=== PATIENT | male | born 1955 | race Caucasian/White ===

== ENCOUNTER 2024-10-05 17:20 | Emergency (ER) | payer OTHER, SELFPAY ==
[2024-10-05 17:25] VITALS: PULSE 92; RESP 18; O2SAT 96; BMI 17.2
[2024-10-05 17:29] VITALS: BP 145/86; PULSE 92; RESP 18; TEMP 37.2; O2SAT 96
--- NOTE | 2024-10-05 17:33 | XR_ITS ---
Examination: AP chest single view Indications: AP portable semiupright chest single view Exam date and time: October 05, 2024 7055 hours Comparison December 07, 2015 Indications: Patient fell today with into the chest, chest pain Findings: Normal heart size No pneumothorax Mild accentuation basilar bronchovascular markings Clavicles ribs appear grossly intact Impression: No pneumothorax pulmonary contusion or hemothorax
--- NOTE | 2024-10-05 17:33 | XR_ITS ---
Examination: Left knee 2 views Technique one AP lateral left knee 2 views Exam date and time: October 15, 2024 1750 hrs. Indications: Prominent osteopenia Partial visualization tibial intramedullary megan No acute fracture Old appearing deformity proximal fibular shaft Impression: No acute fracture
--- NOTE | 2024-10-05 17:34 | EKG_ITS ---
[facility] Test Date: 2024-10-05 Pat Name: WENDY FRANCES Department: Room: - Gender: Male Blending Coordinator: : 1955 Requested By: Farhat Kirkpatrick Order Number: [id number] Reading MD: Farhat Kirkpatrick Measurements Intervals [place] Rate: 86 P: 68 MO: 156 QRS: 13 QRSD: 102 T: 79 QT: 360 QTc: 431 Interpretive Statements SINUS RHYTHM WITH SINUS ARRHYTHMIA Compared to ECG 02/16/2023 11:03:52 Atrial abnormality no longer present /store/S0/[id number]/[id number].pdf
--- NOTE | 2024-10-05 17:34 | XR_ITS ---
Examination: CT brain head without contrast. 2-D sagittal coronal reconstructions Date and time of exam:October 05, 2024 at 1808 hrs. Indications: Patient fell today with injury to the head, head pain CTDI: vol (mGy):48.4 DLP: (mGycm):1025 Technique: Multiple CT axial sections of the brain have been obtained, 5 mm slice thickness. Contrast has not been administered. 2-D sagittal, coronal reconstructions have been obtained Low dose protocols were performed. One or more of the following dose reduction techniques were used; automated exposure control, adjustment of the mA and/or KV according to patient size, use of iterative reconstruction technique. Findings: No significant ventricular enlargement. Large areas of encephalomalacia in the right middle cerebral artery distribution and right occipital lobe as well as smaller infarct, old in the right basal ganglia is Intra-axial or extra-axial hemorrhage density is not seen. No mass effect or midline shift Basal cisterns are not remarkable. Fourth ventricle is midline. Cranial vault intact. Impression: Negative for acute hemorrhage, mass effect or midline shift
--- NOTE | 2024-10-05 17:35 | EDNOTE_ITS ---
ED Fall Injury RME/HPI General Chief Complaint: Weakness Stated Complaint: MENTAL STATUS Time Seen by Provider: 10/05/24 17:32 Arrival date/time: 10/05/24 17:20 RME / HPI RME / HPI Narrative: 69-year-old male patient with significant history of BPH, diabetes mellitus hypertension, seizure disorder, was brought in by EMS for evaluation regarding ground-level fall. Apparently patient developed sudden onset of dizziness and fell to the ground. Patient told me that he landed on his right knee resulting to knee pain described as dull ache severity mild. Patient denies any head injury. However the family witnessed the patient was noted to be confused for a brief moment after the fall. When the EMS arrived patient was noted to be having a GCS of 15. Related Data Home Medications ?Medication ?Instructions ?Recorded ?Confirmed aspirin 81 mg tablet,delayed 81 mg 1XD 08/06/23 release atorvastatin 40 mg tablet 40 mg PO 1XD 08/06/23 cholecalciferol (vitamin D3) 125 125 mcg PO QDAY 08/0608/06/23 mcg (5,000 unit) tablet (Vitamin D3) cinacalcet 30 mg tablet 30 mg PO 1XD 08/06/23 divalproex 125 mg capsule,delayed 125 mg PO 1XD 08/06/23 release sprinkle empagliflozin 10 mg tablet 10 mg PO 1XD 08/06/2308/06 (Jardiance) folic acid 1 mg tablet 1 mg PO 1XD 08/06/23 3 lisinopril 20 mg tablet 20 mg PO 1XD 08/06/23 metformin 1,000 mg tablet 1,000 mg PO 1XD 08/06/2306/19 oxybutynin chloride 5 mg 5 mg PO QDAY 08/06/23 tablet,extended release 24 hr tamsulosin 0.4 mg capsule 0.4 mg PO 1XD 08/06/2308/06 Previous Rx's ?Medication ?Instructions ?Recorded hydrocodone 7.5 mg-acetaminophen 1 tab PO BID PRN pain #7 tabs 08/10/23 300 mg tablet Allergies Allergy/AdvReac Type Severity Reaction Status Date / Time Penicillins Allergy Verified 02/16/23 11:07 Review of Systems Review of Systems Narrative Review of Systems: Review of system reviewed and within normal limits except mentioned in HPI ED Exam Narrative Physical exam: VITAL SIGNS: Reviewed. GENERAL APPEARANCE: Alert and interactive, follows commands, no acute distress, HEAD AND FACE: Non-traumatic. ENT: PERRL, pink conjunctivitis, eyelid no trauma, Mucous membrane moist. NECK: Supple, nontender, no nuchal rigidity. CHEST: No tenderness, no crepitus, no paradoxical movement, no retractions. LUNGS: Clear, well ventilated, symmetric, no rales, no wheezing, no ronchi, no stridor, good breath sounds bilaterally. HEART: Regular rate, regular rhythm, no murmur, no gallops. ABDOMEN: Soft, positive bowel sounds, nondistended, no guarding, nontender, no rebound, no masses, RECTAL: Deferred. GENITAL: Deferred. NEUROLOGICAL: Gross motor function intact sensory function intact, Appropriate for age. MUSCULOSKELETAL: low back nontender, full range of motion. EXTREMITIES: Nontender, full range of motion. SKIN: Color pink, dry, no rash, no lacerations, no abrasions, no contusions. LYMPHATICS: Deferred. Course Quality Measures none Orders Category Date Time Status EKG (ED ONLY) *Do not use* NOW Care 10/05/24 17:[address] head/brain wo con Stat Exams 10/05/24 17:34 Completed EKG (ED Only) Stat Exams 10/05/24 17:34 Draft XR chest 1V Stat Exams 10/05/24 17:33 Completed XR knee limited LT 2V Stat Exams 10/05/24 17:33 Completed CBC Stat Lab 10/05/24 17:40 Completed Comprehensive Metabolic Panel Stat Lab 10/05/24 17:40 Completed Partial Thromboplastin Time Stat Lab 10/05/24 17:40 Completed Troponin I Stat Lab 10/05/24 17:40 Completed Urinalysis, C/S if Indicated Stat Lab 10/05/24 18:51 Completed Benzonatate [Tessalon] Med 10/05/24 19:47 Discontinued 200 mg PO X1 ONE Vital Signs Vital signs: Vital Signs Temperature 98.9 F 10/05/24 17:29 Pulse Rate 92 10/05/24 17:29 Respiratory Rate 18 10/05/24 17:29 Blood Pressure 145/86 H 10/05/24 17:29 Pulse Oximetry (%) 96 10/05/24 17:29 Oxygen Delivery Method Room Air 10/05/24 17:29 Fall [facility] Narrative [facility] Narrative:: 69-year-old male patient with significant history of BPH, diabetes mellitus hypertension, seizure disorder, was brought in by EMS for evaluation regarding ground-level fall. Apparently patient developed sudden onset of dizziness and fell to the ground. Patient told me that he landed on his right knee resulting to knee pain described as dull ache severity mild. Patient denies any head injury. However the family witnessed the patient was noted to be confused for a brief moment after the fall. When the EMS arrived patient was noted to be having a GCS of 15. CT scan of the head came back unremarkable. Chest x-ray came back unremarkable. Laboratory workup all came back normal except for slightly elevated leukocytos is. Could be reactive in nature. Results discussed with the patient. EKG showed sinus rhythm, ventricular rate of 84 bpm, no ST segment elevation depression. Patient appears nontoxic and hemodynamically stable. Patient discharged home and instructed to follow-up with primary care provider in 24 to 48 hours. Instructed to return to the emergency department immediately if worsening of symptoms Patient data External records reviewed:: None Clinical information provided by:: none Social determinants that could affect healthcare access:: none Patient has the following chronic illnesses:: History of CVA How is presenting disease/condition affected by chronic disease/condition?: exacerbated by Evaluation data The following diagnostics were reviewed and interpreted by me:: lab results, radiology exam(s) and EKG tracing(s) Lab and/or radiology exams considered but not ordered:: None Interpretation Summary: See results in [facility] Medications / Prescriptions Medications or Prescriptions considered but not ordered:: None Medication administrations:: Medication Administration History Discontinued Medications Benzonatate (Benzonatate 100 Mg Capsule) 200 mg PO X1 ONE; Protocol Stop: 10/05/24 19:48 Tessalon Consultations Consultation(s) initiated? (list below): No Diagnosis Fall Differential Diagnosis: syncope and other (Fall, intracranial bleed) Most likely diagnosis given after review of the tests above:: Fall Admission Indicated Admission indicated?: not indicated Admission Request Was there a request for admission?: No Disposition Plan Disposition Plan: Discharge Discharge Attestation Discharge Attestation: The patient and all family members were given an opportunity to ask questions and understood the discharge instructions. Discharge instructions specifically effects, indications for sooner follow up or return to the emergency department, and the expected course of current diagnosis. Patient condition: Stable Discharge Plan Plan Patient Disposition: HOME (Self Care) Disposition Comment: Stable Prescriptions/Referrals Prescriptions/Med Rec: No Action atorvastatin 40 mg tablet 40 mg PO 1XD lisinopril 20 mg tablet 20 mg PO 1XD aspirin 81 mg tablet,delayed release (DR/EC) 81 mg 1XD Patient Comments: TAKE ONE TABLET BY MOUTH EVERY DAY FOR THE HEART tamsulosin 0.4 mg capsule 0.4 mg PO 1XD Patient Comments: TAKE TWO CAPSULES BY MOUTH EVERY DAY FOR PROSTATE metformin 1,000 mg tablet 1,000 mg PO 1XD Patient Comments: TAKE ONE TABLET BY MOUTH TWICE DAILY FOR DIABETES folic acid 1 mg tablet 1 mg PO 1XD divalproex 125 mg capsule, delayed rel sprinkle 125 mg PO 1XD Patient Comments: TAKE ONE CAPSULE BY MOUTH TWICE DAILY cinacalcet 30 mg tablet 30 mg PO 1XD Patient Comments: TAKE ONE TABLET BY MOUTH EVERY DAY WITH FOOD OR AFTER MEALS Jardiance 10 mg tablet 10 mg PO 1XD oxybutynin chloride 5 mg Tablet Extended Release 24hr 5 mg PO QDAY cholecalciferol (vitamin D3) [Vitamin D3] 125 mcg (5,000 unit) Tablet 125 mcg PO QDAY hydrocodone-acetaminophen 7.5-300 mg tablet 1 tab PO BID MDD 2 PRN (Reason: pain) Qty: 7 0RF Referrals: Randall Fulton MD [Primary Care Provider] - In 1 week Problem List Clinical Impression: Fall Patient/Caregiver Discharge Instructions Discharge Activity: activity as tolerated Education Materials: Preventing Falls Moving Safely ... Additional Instructions: Thank you for the opportunity for serving you today. You are stable for discharged . You are advised to: Follow-up with your PCP in 1 to 2 days Return to ED for worsening of symptoms Print Language: [place] Stand Alone Forms: Paula Award Info., Patient Portal Info Letter PA/SANTOS Supervising Physician STEVE/SANTOS Supervising Physician: MD Juwan
[2024-10-05 17:59] LABS: Basophils # (Auto) 0.1 Thou/mm3 (0.0-0.2); Basophils % (Auto) 1 % (0-2.5); Eosinophils % (Auto) 0 % (0-10); Hematocrit 37.9 % (41.0-53.0); Hemoglobin 13.1 g/dL (13.5-16.0); Immature Granulocytes % (Auto) 1 % (0-0); Immature Granulocytes Auto 0.08 Thou/mm3 (0.00-0.00); Lymphocytes # (Auto) 1.7 Thou/mm3 (1.0-4.8); Lymphocytes % (Auto) 10 % (10-50); Mean Corpuscular HGB Conc 34.6 g/dl (31.0-37.0); Mean Corpuscular Hemoglobin 30.6 pg (25.0-35.0); Mean Corpuscular Volume 89 fL (80-100); Monocytes # (Auto) 1.9 Thou/mm3 (0.0-0.8); Monocytes % (Auto) 11 % (0-12); Neutrophils # (Auto) 13.5 Thou/mm3 (1.8-7.7); Neutrophils % (Auto) 78 % (37-80); Nucleated Red Blood Cell % 0 /100 WBC (0); Platelet Count 243 Thou/mm3 (140-440); RDW Standard Deviation 47.3 fL (35.1-43.9); Red Blood Count 4.28 Miln/mm3 (4.50-5.90); White Blood Count 17.2 Thou/mm3 (3.8-10.6)
[2024-10-05 18:18] VITALS: BP 135/73; PULSE 82; RESP 20; TEMP 37.5; O2SAT 97
[2024-10-05 18:23] LABS: Alanine Aminotransferase 45 U/L (10-49); Albumin, Serum 4.4 gm/dL (3.4-4.8); Albumin/Globulin Ratio 1.9 (1.2-2.2); Alkaline Phosphatase 158 U/L (46-116); Anion Gap 7 (7-16); Aspartate Amino Transferase 30 U/L (0-34); BUN/Creatinine Ratio 12 Ratio (12-20); Bilirubin,Total 0.8 mg/dL (0.3-1.2); Blood Urea Nitrogen 7 mg/dL (9-23); Calcium 10.3 mg/dL (8.3-10.6); Calcium (Corrected) 10.3 mg/dL (8.5-10.1); Carbon Dioxide 24.2 mMol/L (20.0-31.0); Chloride 101 mMol/L (98-107); Creatinine (Component) 0.6 mg/dL (0.6-1.3); Estimated Creatinine Clearance 86.9 mL/min (>60); Globulin 2.3 gm/dL (2.3-3.5); Glucose 144 mg/dL (74-106); Osmolality,Calculated 265 (275-295); Potassium 3.5 mMol/L (3.4-5.1); Sodium 132 mMol/L (136-145); Total Protein 6.7 gm/dL (5.7-8.2); Troponin I < 0.020 ng/mL (0.0-0.045); eGFR > 60 See Note
[2024-10-05 18:43] VITALS: BP 135/73; PULSE 82; RESP 21; TEMP 37.2; O2SAT 94
[2024-10-05 18:50] LABS: Partial Thromboplastin Time 23.8 Seconds (22.0-36.0)
[2024-10-05 19:11] LABS: Collection Type, Urine Clean Catch
[2024-10-05 19:48] LABS: Bacteria,Urine Rare; Bilirubin,Urine Negative (Negative); Blood,Urine 1+ (Negative); Clarity,Urine Clear (Clear/Hazy); Color,Urine Yellow (Lt Yel-Yel); Culture Indicated,Urine Not Indicated; Glucose, Urine Negative (Negative); Ketones,Urine 1+ (Negative); Leukocyte Esterase,Urine Positive (Negative); Nitrite,Urine Negative (Negative); PH,Urine 6.5 (5.0-7.0); Protein,Urine 1+ (Neg - Trace); RBC,Urine 2 /hpf (0-3); Specific Gravity,Urine 1.016 (1.001-1.035); Squamous Epithelial Cell,Urine 1 /hpf (0-5); Urobilinogen,Urine Negative mg/dL (0.0-1.0); WBC,Urine 4 /hpf (0-5)
[2024-10-05 20:26] VITALS: BP 132/77; PULSE 81; RESP 20; TEMP 37.2; O2SAT 95
[2024-10-05] MEDS: BENZONATATE 100 MG CAPSULE 200 MG PO (20:52)
== END 2024-10-05 21:07 | disposition home or self-care (01) ==
PROVIDERS: Nurse Practitioner Family; Emergency Provider Emergency Medicine; PCP Family Medicine
DX: M25.562 Pain in left knee (principal); R42 Dizziness and giddiness; D72.829 Elevated white blood cell count, unspecified; I11.9 Hypertensive heart disease without heart failure; I10 Essential (primary) hypertension; R56.9 Unspecified convulsions; Z86.73 Personal history of transient ischemic attack (TIA), and cerebral infarction without residual deficits; W18.30XA Fall on same level, unspecified, initial encounter
CPT/HCPCS: 36415; 70450; 71045; 73560; 80053; 81001; 84484; 85025; 85730; 93005; 99284; A9270

== ENCOUNTER 2025-01-28 16:41 | Inpatient (IN) | payer OTHER, MEDICARE, SELFPAY ==
[2025-01-28 16:43] VITALS: PULSE 88; O2SAT 97
[2025-01-28 16:47] VITALS: BP 101/68; PULSE 85; RESP 19; TEMP 36.8; O2SAT 98
--- NOTE | 2025-01-28 17:03 | EKG_ITS ---
[facility] Test Date: 2025-01-28 Pat Name: WENDY FRANCES Department: Room: - Gender: Male Mental Measurements Teacher: : 1955 Requested By: ED Temporary Provider Order Number: [id number] Reading MD: ED Temporary Provider Measurements Intervals [place] Rate: 71 P: 67 SC: 164 QRS: 17 QRSD: 105 T: 62 QT: 391 QTc: 425 Interpretive Statements SINUS RHYTHM WITH SINUS ARRHYTHMIA Compared to ECG 10/05/2024 17:51:15 No significant changes /store/S0/[id number]
[2025-01-28 17:58] LABS: Basophils # (Auto) 0.1 Thou/mm3 (0.0-0.2); Basophils % (Auto) 1 % (0-2.5); Eosinophils # (Auto) 0.4 Thou/mm3 (0.0-0.5); Eosinophils % (Auto) 3 % (0-10); Hematocrit 40.6 % (41.0-53.0); Hemoglobin 13.8 g/dL (13.5-16.0); Immature Granulocytes % (Auto) 1 % (0-0); Immature Granulocytes Auto 0.09 Thou/mm3 (0.00-0.00); Lymphocytes # (Auto) 1.6 Thou/mm3 (1.0-4.8); Lymphocytes % (Auto) 13 % (10-50); Mean Corpuscular Hemoglobin 30.5 pg (25.0-35.0); Mean Corpuscular Volume 90 fL (80-100); Monocytes # (Auto) 0.9 Thou/mm3 (0.0-0.8); Monocytes % (Auto) 7 % (0-12); Neutrophils # (Auto) 9.1 Thou/mm3 (1.8-7.7); Neutrophils % (Auto) 75 % (37-80); Nucleated Red Blood Cell % 0 /100 WBC (0); Platelet Count 244 Thou/mm3 (140-440); RDW Standard Deviation 46.4 fL (35.1-43.9); Red Blood Count 4.53 Miln/mm3 (4.50-5.90); White Blood Count 12.2 Thou/mm3 (3.8-10.6)
[2025-01-28 18:13] LABS: Alanine Aminotransferase 30 U/L (10-49); Albumin, Serum 4.1 gm/dL (3.4-4.8); Alkaline Phosphatase 122 U/L (46-116); Anion Gap 8 (7-16); Aspartate Amino Transferase 18 U/L (0-34); BUN/Creatinine Ratio 12 Ratio (12-20); Bilirubin,Total 0.3 mg/dL (0.3-1.2); Blood Urea Nitrogen 7 mg/dL (9-23); Calcium 10.3 mg/dL (8.3-10.6); Calcium (Corrected) 10.3 mg/dL (8.5-10.1); Carbon Dioxide 28.2 mMol/L (20.0-31.0); Chloride 104 mMol/L (98-107); Creatinine (Component) 0.6 mg/dL (0.6-1.3); Estimated Creatinine Clearance 101.4 mL/min (>60); Globulin 2.1 gm/dL (2.3-3.5); Glucose 139 mg/dL (74-106); Osmolality,Calculated 279 (275-295); Potassium 4.7 mMol/L (3.4-5.1); Sodium 140 mMol/L (136-145); Total Protein 6.2 gm/dL (5.7-8.2); Troponin I < 0.020 ng/mL (0.0-0.045); eGFR > 60 See Note
[2025-01-28 18:29] VITALS: BP 121/80; PULSE 80; RESP 20; O2SAT 97
--- NOTE | 2025-01-28 18:53 | PD.EDAMS ---
Altered Mental Status RME/HPI General Chief Complaint: Altered Mental Status Stated Complaint: HYPOTENSION Time Seen by Provider: 01/28/25 18:54 Source: patient Arrival date/time: 01/28/25 16:41 69-year-old male with a history of a CVA 3 years ago, hyperlipidemia, hypertension, type 2 diabetes presents to the emergency room with a chief complaint of a syncopal episode that occurred today at 4 PM. at bedside states that the patient's eyes rolled back and left arm began to shake. Mode of arrival: ambulatory Limitations: no limitations Related Data Home Medications ?Medication ?Instructions ?Recorded ?Confirmed atorvastatin 40 mg tablet 40 mg PO 1XD 08/06/23 01/28/25 cholecalciferol (vitamin D3) 125 125 mcg PO QDAY 08/06/23 01/28/25 mcg (5,000 unit) tablet (Vitamin D3) Held on 01/28/25. Instructions: Doctor's Order cinacalcet 30 mg tablet 30 mg PO 1XD 08/06/23 01/28/25 Held on 01/28/25. Instructions: Doctor's Order divalproex 125 mg capsule,delayed 125 mg PO 1XD 08/06/23 01/28/25 release sprinkle empagliflozin 10 mg tablet 10 mg PO 1XD 08/06/23 01/28/25 (Jardiance) Held on 01/28/25. Instructions: Doctor's Order folic acid 1 mg tablet 1 mg PO 1XD 08/06/23 01/28/25 Held on 01/28/25. Instructions: Doctor's Order lisinopril 20 mg tablet 20 mg PO 1XD 08/06/23 01/28/25 oxybutynin chloride 5 mg 5 mg PO QDAY 08/06/23 08/06/23 tablet,extended release 24 hr tamsulosin 0.4 mg capsule 0.4 mg PO 1XD 08/06/23 01/28/25 hydroxyzine HCl 25 mg tablet mg 01/28/25 Previous Rx's ?Medication ?Instructions ?Recorded hydrocodone 7.5 mg-acetaminophen 1 tab PO BID PRN pain #7 tabs 08/10/23 300 mg tablet Held on 01/28/25. Instructions: Doctor's Order Allergies Allergy/AdvReac Type Severity Reaction Status Date / Time Penicillins Allergy Verified 01/28/25 16:49 Review of Systems Review of Systems Systems Reviewed: All systems reviewed, normal except as documented Constitutional Constitutional: Reports system reviewed and no additional complaints, except as documented, Denies fatigue, Denies fever(s), Denies headache(s) and Denies weakness Eyes Eyes: Reports system reviewed and no additional complaints, except as documented, Denies blurry vision and Denies change in vision ENT Ears, Nose, Mouth, and Throat: Reports system reviewed and no additional complaints, except as documented, Denies otalgia, Denies headache(s), Denies nasal congestion, Denies throat swelling and Denies vertigo Cardiovascular Cardiovascular: Reports system reviewed and no additional complaints, except as documented, Denies chest pain, Denies dyspnea and Denies dyspnea on exertion Respiratory Respiratory: Reports system reviewed and no additional complaints, except as documented, Denies chest congestion, Denies cough, Denies dyspnea, Denies dyspnea on exertion and Denies wheezing Gastrointestinal Gastrointestinal: Reports system reviewed and no additional complaints, except as documented, Denies abdominal pain, Denies cramping, Denies nausea and Denies vomiting Genitourinary Genitourinary: Reports system reviewed and no additional complaints, except as documented, Denies dysuria and Denies hematuria Musculoskeletal Musculoskeletal: Reports system reviewed and no additional complaints, except as documented and Denies back pain Integumentary/Breasts Skin/Breast: Reports system reviewed and no additional complaints, except as documented and Denies wounds Neurologic Neurologic: Reports system reviewed and no additional complaints, except as documented, Denies confusion, Reports convulsions, Denies headache(s), Denies lack of coordination, Reports seizure-like activity, Denies vertigo and Denies weakness Psychiatric Psychiatric: Reports system reviewed and no additional complaints, except as documented, Denies anxiety, Denies confusion, Denies depression, Denies paranoia, Denies suicidal ideation and Denies tactile hallucinations Endocrine Endocrine: Reports system reviewed and no additional complaints, except as documented and Denies fatigue Hematologic/Lymphatic Hematologic/Lymphatic: Reports system reviewed and no additional complaints, except as documented and Denies lymphadenopathy Allergic/Immunologic Allergic/Immunologic: Reports system reviewed and no additional complaints, except as documented, Denies throat swelling, Denies urticaria and Denies wheezing Past Medical History Past Medical History NEUROLOGIC: Positive Neurological Disorders and Cerebrovascular Accident (left side 2020); Negative Seizures CARDIAC: Positive Hypercholesterolemia and Hypertension; Negative Cardiac Disorders or Congestive Heart Failure RESPIRATORY: Negative Respiratory Disorders, Chronic Obstructive Pulmonary Disease (COPD) or Asthma GENITOURINARY: Positive Benign Prostatic Hyperplasia; Negative Renal Disease ENDOCRINE: Positive Endocrine Disorders and Diabetes Mellitus Type 2; Negative Diabetes Mellitus Type 1 HEMATOLOGIC: Negative Sickle Cell Disease OTHER HISTORY: Negative Blood Transfusions, Blood Transfusion Reaction or Anesthesia Reactions Surgical History SURGICAL: Positive Hip Sx Social History SMOKING STATUS: Current some day smoker ED Exam General Limitations: Present no limitations General appearance: Present alert and in no apparent distress Head Head exam: Present atraumatic, normocephalic and normal inspection Expanded Head Exam Head exam physical: Absent laceration, abrasion, contusion, hematoma, raccoon eyes, Kahn's sign, tenderness of temporal artery, CSF rhinorrhea or CSF otorrhea Eye Eye exam: Present normal appearance, PERRL and EOMI ENT ENT exam: Present normal exam, normal oropharynx and mucous membranes moist Neck Neck exam: Present normal inspection, full ROM and trachea midline Chest Chest inspection: Present normal inspection and symmetric chest wall rise Respiratory Respiratory exam: Present normal lung sounds bilaterally Cardiovascular Cardiovascular exam: Present regular rate, normal rhythm and normal heart sounds Abdominal Exam Abdominal exam: Present soft and normal bowel sounds Extremities Exam Extremities exam: Present normal inspection and full ROM Back Exam Back exam: Present normal inspection and full ROM Neurological Exam Neurological exam: Present alert, oriented X3, CN II-XII intact, normal gait and reflexes normal Expanded Neurological Exam Patient oriented to: Present person, place and time Speech: Present fluid speech Cerebellar function: Present normal gait Motor strength - LUE: 5/5 Motor strength - RUE: 5/5 Motor strength - LLE: 5/5 Motor strength - RLE: 5/5 Coma scale eye opening: spontaneous Coma scale motor response: obeys commands Coma scale verbal response: oriented Coma scale total: 15 Psychiatric Psychiatric exam: Present normal affect and normal mood Skin Skin exam: Present warm, dry, intact and normal color Course Quality Measures none Orders Category Date Time Status Yacht Hand STAT Care 01/28/25 17:38 Active EKG (ED ONLY) *Do not use* NOW Care 01/28/25 17:03 Completed EKG (ED ONLY) *Do not use* NOW Care 01/28/25 21:02 Completed Insert IV STAT Care 01/28/25 17:[address] head/brain wo con Stat Exams 01/28/25 18:57 Completed EKG (ED Only) Stat Exams 01/28/25 17:03 Draft EKG (ED Only) Stat Exams 01/28/25 21:02 Draft CBC Stat Lab 01/28/25 17:49 Completed Comprehensive Metabolic Panel Stat Lab 01/28/25 17:49 Completed Troponin I Stat Lab 01/28/25 17:49 Completed Troponin I Stat Lab 01/28/25 22:01 Received Urinalysis Stat Lab 01/28/25 20:57 Completed Urine Culture Stat Lab 01/28/25 20:57 Received Vital Signs Vital signs: Vital Signs Temperature 98.2 F 01/28/25 16:47 Pulse Rate 85 01/28/25 16:47 Respiratory Rate 19 01/28/25 16:47 Blood Pressure 101/68 01/28/25 16:47 Pulse Oximetry (%) 98 01/28/25 16:47 Oxygen Delivery Method Room Air 01/28/25 16:47 O2 saturation 98% with normal limits Altered Mental Status MDM Narrative MDM Narrative:: 69-year-old male with a history of a CVA 3 years ago, hyperlipidemia, hypertension, type 2 diabetes presents to the emergency room with a chief complaint of a syncopal episode that occurred today at 4 PM. at bedside states that the patient's eyes rolled back and left arm began to shake. Patient is hemodynamically stable and in no apparent distress. According to the the patient is currently at baseline. The states that the patient had a syncopal episode at his home. The described the syncopal episode as his eyes rolling behind his head and his arms shaking repeatedly. The at bedside and the patient states that he does not have a history of any seizures but after stroke he was put on in a rehabilitation home and in that home they started him on Depakote. CT of the head and brain was completed and was negative for any acute findings. CBC CMP within normal limits Dr. Coleman's hospitalist on-call was consulted and the patient will be admitted Patient data External records reviewed:: [facility] previous records Clinical information provided by:: patient Social determinants that could affect healthcare access:: none Patient has the following chronic illnesses:: No chronic illness How is presenting disease/condition affected by chronic disease/condition?: no chronic disease Evaluation data The following diagnostics were reviewed and interpreted by me:: lab results and radiology exam(s) Lab and/or radiology exams considered but not ordered:: Labs and radiology exams considered in order Interpretation Summary: CT head and brain-Findings: No significant ventricular enlargement. Again noted areas of encephalomalacia in the right middle cerebral artery distribution and right occipital lobe as well as right basal ganglia Intra-axial or extra-axial hemorrhage density is not seen. No mass effect or midline shift Basal cisterns are not remarkable. Fourth ventricle is midline. Cranial vault intact. Impression: Negative for acute hemorrhage, mass effect or midline shift If symptoms persist, consider brain MRI follow-up Medications / Prescriptions Medications or Prescriptions considered but not ordered:: Medication given Medication administrations:: Medication Administration History Acetaminophen (Acetaminophen 325 Mg Tablet) 650 mg PO Q6H PRN PRN Reason: pain and Fever >100.4 Stop: 02/27/25 21:37 Atorvastatin Calcium (Atorvastatin Calcium 20 Mg Tablet) 40 mg PO HS RAHEEL Stop: 02/28/25 20:59 Dextrose (Dextrose 50%-Water Inj 50 Ml Syringe) 25 ml IV Q15MIN PRN PRN Reason: BG 50-70 responsive npo pt Stop: 02/27/25 21:37 Dextrose (Dextrose 50%-Water Inj 50 Ml Syringe) 50 ml IV Q15MIN PRN PRN Reason: BG <50 OR BG <70 & pt unresponsive Stop: 02/27/25 21:37 Divalproex Sodium (Divalproex Sod 125 Mg Sprinkle) 125 mg PO QDAY RAHEEL Stop: 02/28/25 08:59 Glucagon (Glucagon Inj 1 Mg Vial) 1 mg IM Q15MIN PRN PRN Reason: BG <70, and no IV access Heparin Sodium (Porcine) (Heparin Sod Inj 5000 Unit/Ml Vial) 5,000 unit SC Q8HR [facility] Stop: 02/11/25 21:59 Ceftriaxone Sodium/Dextrose (Rocephin/D5w 1gm Iv Premix) 1 gm in 50 mls @ 100 mls/hr IV QDAY@2100 RAHEEL Stop: 02/04/25 21:44 Insulin Human Lispro (Insulin Lispro (Admelog) 1 Unit/0.01 Ml Unit) 0 unit SC Q6HR RAHEEL; Protocol Stop: 02/28/25 00:00 Lorazepam (Lorazepam 2 Mg/Ml Vial) 1 mg IVP Q2HR PRN PRN Reason: Breakthrough seizures Stop: 02/02/25 21:59 Ondansetron HCl (Ondansetron Inj 2 Mg/Ml Inj 2 Ml) 4 mg IVP Q6H PRN; Protocol PRN Reason: NAUSEA OR VOMITING Stop: 02/27/25 21:37 Tamsulosin HCl (Tamsulosin Hcl 0.4 Mg Capsule) 0.4 mg PO 1XD RAHEEL Stop: 02/27/25 22:29 Discontinued Medications Divalproex Sodium (Divalproex Sod 125 Mg Sprinkle) 125 mg PO 1XD RAHEEL Stop: 02/27/25 22:29 Levetiracetam (Levetiracetam Inj 100 Mg/Ml Vial 5ml) 1,000 mg IVP X1 ONE Stop: 01/28/25 21:44 Medication given Consultations Consultation(s) initiated? (list below): No Diagnosis Differential diagnosis altered mental status: other (Syncopal episode/seizure) Most likely diagnosis given after review of the tests above:: Syncopal episode Admission Indicated Admission indicated?: not indicated Admission Request Was there a request for admission?: No Disposition Plan Disposition Plan: Discharge Discharge Attestation Discharge Attestation: The patient and all family members were given an opportunity to ask questions and understood the discharge instructions. Discharge instructions specifically effects, indications for sooner follow up or return to the emergency department, and the expected course of current diagnosis. Patient condition: Stable Discharge Plan Plan Patient Disposition: Admit Acute Care w/in Hospital Discharge Disposition comment: Stable. Problem List Clinical Impression: Syncopal episodes
--- NOTE | 2025-01-28 18:57 | XR_ITS ---
Examination: CT brain head without contrast. 2-D sagittal coronal reconstructions Date and time of exam:January 28, 2025 1913 hours Comparison October 05, 2024 INDICATIONS: Syncopal episode today CTDI: vol (mGy):50.3 DLP: (mGycm):1047 Technique: Multiple CT axial sections of the brain have been obtained, 5 mm slice thickness. Contrast has not been administered. 2-D sagittal, coronal reconstructions have been obtained Low dose protocols were performed. One or more of the following dose reduction techniques were used; automated exposure control, adjustment of the mA and/or KV according to patient size, use of iterative reconstruction technique. Findings: No significant ventricular enlargement. Again noted areas of encephalomalacia in the right middle cerebral artery distribution and right occipital lobe as well as right basal ganglia Intra-axial or extra-axial hemorrhage density is not seen. No mass effect or midline shift Basal cisterns are not remarkable. Fourth ventricle is midline. Cranial vault intact. Impression: Negative for acute hemorrhage, mass effect or midline shift If symptoms persist, consider brain MRI follow-up
[2025-01-28 20:21] VITALS: PULSE 76
--- NOTE | 2025-01-28 21:02 | EKG_ITS ---
[facility] Test Date: 2025-01-28 Pat Name: WENDY FRANCES Department: Room: - Gender: Male Radiologic Technologist: : 1955 Requested By: Moe Bhat Order Number: [id number] Reading MD: Moe Bhat Measurements Intervals [place] Rate: 76 P: 150 IL: 153 QRS: -20 QRSD: 102 T: 149 QT: 369 QTc: 415 Interpretive Statements ECTOPIC ATRIAL RHYTHM WITH OCCASIONAL VENTRICULAR PREMATURE COMPLEXES LEFT ATRIAL ENLARGEMENT [-0.15mV P-WAVE IN V1/V2] LOW QRS VOLTAGE IN EXTREMITY LEADS [QRS DEFLECTION < 0.5 mV IN LIMB LEADS] INCOMPLETE RIGHT BUNDLE BRANCH BLOCK [90+ ms QRS DURATION, TERMINAL R IN V1/V2, 40+ ms S IN I/aVL/V4/V5/V6] MODERATE ST DEPRESSION [0.05+ mV ST DEPRESSION] ABNORMAL QRS-T ANGLE [QRS-T AXIS DIFFERENCE > 60] Compared to ECG 01/28/2025 17:05:01 Ectopic atrial rhythm now present Ventricular premature complex(es) now present Atrial abnormality now present Low QRS voltage now present Incomplete right bundle-branch block now present ST (T wave) deviation now present Sinus rhythm no longer present Sinus arrhythmia no longer present /store/[id number]
[2025-01-28 21:03] LABS: Collection Type, Urine Catheter; Squamous Epithelial Cell,Urine 0 /hpf (0-5)
[2025-01-28 21:10] LABS: Bacteria,Urine Rare; Bilirubin,Urine Negative (Negative); Blood,Urine Negative (Negative); Clarity,Urine Clear (Clear/Hazy); Color,Urine Colorless (Lt Yel-Yel); Glucose, Urine Negative (Negative); Ketones,Urine Negative (Negative); Leukocyte Esterase,Urine Positive (Negative); Nitrite,Urine Negative (Negative); PH,Urine 6.5 (5.0-7.0); Protein,Urine Negative (Neg - Trace); RBC,Urine 5 /hpf (0-3); Specific Gravity,Urine 1.008 (1.001-1.035); Urobilinogen,Urine Negative mg/dL (0.0-1.0); WBC,Urine 12 /hpf (0-5)
--- NOTE | 2025-01-28 21:49 | PD.RESHP ---
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 At bedside patient was accompanied by and patient was ready back to his baseline. Per patient he did not remember what led to the events and what happened after he had the syncopal event. Patient's was at bedside stated that his daughter was talking to the patient on the porch when all of a sudden he dropped his calvo and he has some left upper extremity shaking and his eyes were rolled back he did not have any tongue biting or any bowel or urinary incontinence at this time. Patient was confused afterwards, but shortly after around 20 minutes afterwards he was back to his baseline when the paramedics arrived to the scene. Patient's stated that this is not the first episode that this is around the fourth episode that patient has a syncopal episode with left arm shakiness and eyes rolled back ever since patient had the stroke in 2021. Patient does not follow with a neurologist outpatient and he has not been diagnosed with seizure disorder, but he has been taking Depakote since his CVA. There is no documentation about any diagnosis of seizures and patient and his were unaware of a diagnosis of seizure. Patient on assessment was AO x 3 and was able to provide some history and answer all questions and follow commands. Since the seizure patient has also had some urinary retention where he sometimes has to cath himself and is on tamsulosin at home. Otherwise no new complaints at this time. ED course: Initially came in afebrile and normotensive. Initial labs were relevant for mild leukocytosis and UA positive for bacteria. Initial imaging included head CT which was unremarkable and EKG which did not show any ST changes. PMH: As above Social Hx: Active smoker, social drinker, denies any drugs other than THC. Review of Systems Review of Systems Narrative Review of Systems: Constitutional: Denies sweats, Denies weight loss/gain, Denies fever, Denies chills. HEENT: Denies hearing loss, Denies ear pain, Denies postnasal drip, Denies double vision, Denies blurry vision. Respiratory: Denies shortness of breath, Denies cough, Denies wheezing. Cardiovascular: Denies chest pain, Denies palpitations, Admits sudden loss of consciousness. GI: Denies blood in stool, Denies constipation, Denies abdominal pain, Denies difficulty swallowing, Denies nausea or vomit. : Admits urinary incontinence, Denies pain while urinating, Denies increased urinary frequency. MSK: Denies joint pain, Denies joint swelling, Denies numbness. Skin: Denies rash, Denies itching, Denies easy bruising. Neuro: Denies headaches, Denies dizziness, Admits seizure like activity. Exam Vital Signs Temp Pulse Resp BP Pulse Ox O2 Del Method 98.2 F 76 20 121/80 97 Room Air 01/28/25 16:47 01/28/25 20:21 01/28/25 18:29 01/28/25 18:29 01/28/25 18:29 01/28/25 18:29 Narrative Exam General: A/O x3, no acute distress Eyes: PERRL, EOMI. Anicteric, vision grossly intact. Ears: No ear pain, no ear discharge, Hearing grossly intact. Nose: No nasal discharge. Mouth/Throat: Moist mucous membranes, no redness, no lesions. Neck: Neck supple, non-tender, no cervical lymphadenopathy. Lungs: Clear ANTELMO to auscultation and percussion, No accessory muscle use. Cardio: Normal S1/S2, regular rhythm, no murmurs, no JVD Abdomen: Soft, non-tender, no palpable masses, peristalsis present, no guarding or rebound. Extremities: Symmetrical, no significant deformities, no peripheral edema , non-tender, peripheral pulses presents. Skin: No rashes, no lesions, warm to touch. Neuro: L UE strength 4/5 and ANTELMO LE strength 5/5 with some slow movement of L LE extremity as compared to R LE. Some mild dysmetria ANTELMO. no sensory deficits Psych: Cooperative, appropriate mood and effect. Results: Labs 01/28/25 17:49 01/28/25 17:49 Labs: Short CBC 01/28/25 Range/Units 17:49 WBC 12.2 H (3.8-10.6) Thou/mm3 Hgb 13.8 (13.5-16.0) g/dL Hct 40.6 L (41.0-53.0) % Plt Count 244 (140-440) Thou/mm3 BMP 01/28/25 17:49 Sodium 140 Potassium 4.7 Chloride 104 Carbon Dioxide 28.2 BUN 7 L Creatinine 0.6 Glucose 139 H Calcium 10.3 Cardiac Enzymes 01/28/25 Range/Units 17:49 Troponin I < 0.020 (0.0-0.045) ng/mL Liver Function 01/28/25 Range/Units 17:49 Total Bilirubin 0.3 (0.3-1.2) mg/dL AST 18 (0-34) U/L ALT 30 (10-49) U/L Alkaline Phosphatase 122 H (46-116) U/L Albumin 4.1 (3.4-4.8) gm/dL Urine 01/28/25 Range/Units 20:57 Urine Color Colorless A (Lt Yel-Yel) Urine Clarity Clear (Clear/Hazy) Urine pH 6.5 (5.0-7.0) Ur Specific [place] 1.008 (1.001-1.035) Urine Protein Negative (Neg - Trace) Urine Glucose (UA) Negative (Negative) Quality Measures Quality Measures VTE prophylaxis Advance care planning discussed with:: patient and spouse Medications Home Medications and Allergies Home Medications ?Medication ?Instructions ?Recorded ?Confirmed ?Type atorvastatin 40 mg tablet 40 mg PO QPM 08/06/23 01/29/25 History cholecalciferol (vitamin D3) 125 125 mcg PO QDAY 08/06/23 01/28/25 History mcg (5,000 unit) tablet (Vitamin D3) Held on 01/28/25. Instructions: Doctor's Order cinacalcet 30 mg tablet 30 mg PO 1XD 08/06/23 01/28/25 History Held on 01/28/25. Instructions: Doctor's Order divalproex 125 mg capsule,delayed 125 mg PO BID 08/06/23 01/29/25 History release sprinkle empagliflozin 10 mg tablet 10 mg PO 1XD 08/06/23 01/28/25 History (Jardiance) Held on 01/28/25. Instructions: Doctor's Order folic acid 1 mg tablet 1 mg PO 1XD 08/06/23 01/28/25 History Held on 01/28/25. Instructions: Doctor's Order lisinopril 20 mg tablet 20 mg PO DAILY 08/06/23 01/29/25 History oxybutynin chloride 5 mg 5 mg PO QDAY 08/06/23 08/06/23 History tablet,extended release 24 hr tamsulosin 0.4 mg capsule 0.4 mg PO QPM 08/06/23 01/29/25 History hydroxyzine HCl 25 mg tablet 25 mg PO HS 01/28/25 01/29/25 History Allergies Allergy/AdvReac Type Severity Reaction Status Date / Time Penicillins Allergy Verified 01/28/25 16:49 Visit Medications Acetaminophen (Acetaminophen 325 Mg Tablet) 650 mg PO Q6H PRN PRN Reason: pain and Fever >100.4 Stop: 02/27/25 21:37 Dextrose (Dextrose 50%-Water Inj 50 Ml Syringe) 25 ml IV Q15MIN PRN PRN Reason: BG 50-70 responsive npo pt Stop: 02/27/25 21:37 Dextrose (Dextrose 50%-Water Inj 50 Ml Syringe) 50 ml IV Q15MIN PRN PRN Reason: BG <50 OR BG <70 & pt unresponsive Stop: 02/27/25 21:37 Glucagon (Glucagon Inj 1 Mg Vial) 1 mg IM Q15MIN PRN PRN Reason: BG <70, and no IV access Heparin Sodium (Porcine) (Heparin Sod Inj 5000 Unit/Ml Vial) 5,000 unit SC Q8HR RAHEEL Stop: 02/11/25 21:59 Ceftriaxone Sodium/Dextrose (Rocephin/D5w 1gm Iv Premix) 1 gm in 50 mls @ 100 mls/hr IV QDAY RAHEEL Stop: 02/04/25 21:44 Insulin Human Lispro (Insulin Lispro (Admelog) 1 Unit/0.01 Ml Unit) 0 unit SC Q6HR RAHEEL; Protocol Stop: 02/28/25 00:00 Levetiracetam (Levetiracetam Inj 100 Mg/Ml Vial 5ml) 1,000 mg IVP X1 ONE Stop: 01/28/25 21:44 Lorazepam (Lorazepam 2 Mg/Ml Vial) 1 mg IVP Q2HR PRN PRN Reason: Breakthrough seizures Stop: 02/02/25 21:59 Ondansetron HCl (Ondansetron Inj 2 Mg/Ml Inj 2 Ml) 4 mg IVP Q6H PRN; Protocol PRN Reason: NAUSEA OR VOMITING Stop: 02/27/25 21:37 Assessment & Plan Plan 69-year-old male with past medical history of CVA with residual left-sided weakness, hypertension, BPH, DM2, and 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 #Acute cephalopathy, resolved #Possible focal seizure #Hx of CVA with residual left-sided weakness Patient came in after having an episode of seizure-like activity per the patient's where he had only left arm shaking with eye rolling and afterward he had some postictal confusion. Patient on the time of assessment was back to baseline. Patient has left-sided weakness from previous CVA Patient was taking Depakote at home after CVA, but no documented diagnosis of seizures in the past. DDx includes focal seizure versus less likely TIA. Patient's UA was positive bacteria which could also be the inciting factor for his seizure onset. Plan: Loading dose of Keppra 1000 mg IV x 1 Will restart depakote as per neuro Ativan 1 mg every 2 hours as needed for breakthrough seizures Resumed patient's atorvastatin MRI head brain with and without contrast ordered EEG ordered Aspiration precautions Seizure cautions N.p.o. until nurse bedside Neurology consulted, appreciate commendations #UTI #Leukocytosis #Hx of urine retention after CVA Patient's UA was positive for bacteria Patient needs to do self-catheterization since his CVA. WBC 12.2, could be reactive versus infectious Given patient's seizure that urinary infection could drop threshold for seizure we will start antibiotics Plan: Urine cultures ordered Ceftriaxone 1 g daily (02/24/2025?) Will continue to monitor Chronic diseases: #Hx of DM2 #Hx of HTN Patient blood pressure has been well under control therefore will not start antihypertensive medications for now ISS hypoglycemia protocol ordered A1c for morning labs Disposition: Patient admitted to telemetry for possible new onset seizures. Diet: NPO GI prophylaxis: not indicated DVT prophylaxis: heparin subcu Code: DNR Case disclosed with Attending Dr. Pedro Goldman PGY1 Disclaimer: Even though this this note was dictated by speech recognition and even though it was carefully revised there may still be minor errors in aquatic instructor due to voice recognition software. Attending Provider Attestation/Addendum Face to face evaluation was performed by me. I have personally seen and examined the patient. I discussed the assessment and plan with the entire medicine team. I reviewed available medical records, imaging studies, laboratory results. I agree with the above subjective data, objective findings, assessment and plan except as corrected by me or noted below Acute encephalopathy, possible seizure related- postictal, or metabolic Hx of CVA T2DM HLD Hx of self catheterization Hx of BPH Urine retention - EEG, MRI brain, Neurology consult - Give load dose of Keppra, resume home depakpte - UA +, no dysuria, self catheterization Hx, afebrile with minimal leukocytopsis-= given cef x 1, will hold off Abxs for now - Foely placed for retention, flomax - can try voiding trial today-tmr More than > 30 minutes spent on the encounter
[2025-01-28 21:55] VITALS: BP 164/98; PULSE 71; PULSE 75; RESP 18; RESP 97; O2SAT 97
[2025-01-28 22:30] LABS: Troponin I < 0.020 ng/mL (0.0-0.045)
[2025-01-28] MEDS: levETIRAcetam INJ 100 MG/ML VIAL 5ML 1000 MG IVP (22:45)
[2025-01-28] MEDS: cefTRIAXone/D5w 1gm IV premix 1 GM/50 ML BAG IV (22:45)
[2025-01-28] MEDS: TAMSULOSIN HCL 0.4 MG CAPSULE PO (22:45)
[2025-01-28] MEDS: HEPARIN SOD INJ 5000 UNIT/ML VIAL SC (22:45)
[2025-01-29] VITALS (9 sets, daily range): BP systolic 126–150; BP diastolic 78–94; PULSE 65–78; RESP 10–97; TEMP 36.3–36.6; O2SAT 96–98; BMI 18.6; BMI 18.7
--- NOTE | 2025-01-29 | XR_ITS ---
Examination: MRI of brain without intravenous contrast. MRI brain with intravenous contrast. Date and time of exam:January 29, 2025, 1530 hours INDICATIONS: Onset altered mental status January 28, 2025 with syncopal episode Technique: Multiple axial and sagittal images of the brain to been obtained. Siemens high-resolution 1.52 Narcisa short bore scanner utilized. Sagittal sections, T1 weighted images, TR 500, TE 14, are performed. Axial sections proton-density and T2-weighted images have been obtained. Inversion recovery axial images, TR 9260, TE 111, TR 2500. Diffusion weighted images, axial sections, TR 4800, TE 128, B value 1000. Axial sections, ADC map, TR 4800, TE 128. Axial and coronal images were also obtained post 11 cc gadolinium administered intravenously. Findings:: Enlargement of the sella turcica is not present. The optic chiasm and infundibular stalk are not remarkable. There is no localized enlargement of the medulla or loli. Fourth ventricle and cerebellar tonsils appear normal in position. No subacute area of hemorrhage density is seen. Fourth ventricle is midline. Mass in the cerebellopontine angle region is not evident. 7th and 8th nerve complexes exhibit symmetry Globes are symmetrical Orbital musculature including medial lateral rectus muscles do not exhibit abnormality Increased white matter signal is prominent, including multiple old infarcts in the right cerebral hemisphere Effacement of the cortical sulcal markings is not identified. Mass effect upon the ventricular system is not identified. Diffusion-weighted images demonstrate no focus of restricted diffusion Chronic pansinusitis Contrast images demonstrate no abnormal enhancement Impression: Negative for acute hemorrhage mass effect or midline shift No acute infarct Prominent chronic microvascular white matter change with multiple old infarcts
[2025-01-29 05:32] LABS: Basophils # (Auto) 0.1 Thou/mm3 (0.0-0.2); Basophils % (Auto) 1 % (0-2.5); Eosinophils # (Auto) 0.5 Thou/mm3 (0.0-0.5); Eosinophils % (Auto) 4 % (0-10); Hematocrit 40.2 % (41.0-53.0); Hemoglobin 13.8 g/dL (13.5-16.0); Immature Granulocytes % (Auto) 1 % (0-0); Immature Granulocytes Auto 0.06 Thou/mm3 (0.00-0.00); Lymphocytes # (Auto) 3.1 Thou/mm3 (1.0-4.8); Lymphocytes % (Auto) 28 % (10-50); Mean Corpuscular HGB Conc 34.3 g/dl (31.0-37.0); Mean Corpuscular Hemoglobin 30.8 pg (25.0-35.0); Mean Corpuscular Volume 90 fL (80-100); Monocytes # (Auto) 0.9 Thou/mm3 (0.0-0.8); Monocytes % (Auto) 8 % (0-12); Neutrophils # (Auto) 6.4 Thou/mm3 (1.8-7.7); Neutrophils % (Auto) 59 % (37-80); Nucleated Red Blood Cell % 0 /100 WBC (0); Platelet Count 261 Thou/mm3 (140-440); Red Blood Count 4.48 Miln/mm3 (4.50-5.90); White Blood Count 10.9 Thou/mm3 (3.8-10.6)
[2025-01-29] MEDS: HEPARIN SOD INJ 5000 UNIT/ML VIAL SC ×3 (05:59→21:02)
[2025-01-29 06:03] LABS: Glucose Estimated Average 111 mg/dL (80-131); Hemoglobin A1C 5.5 % Hgb (4.8-6.0)
[2025-01-29 06:37] LABS: Alanine Aminotransferase 33 U/L (10-49); Alkaline Phosphatase 126 U/L (46-116); Anion Gap 9 (7-16); Aspartate Amino Transferase 22 U/L (0-34); BUN/Creatinine Ratio 12 Ratio (12-20); Bilirubin,Total 0.4 mg/dL (0.3-1.2); Blood Urea Nitrogen 6 mg/dL (9-23); Calcium 10.5 mg/dL (8.3-10.6); Calcium (Corrected) 10.5 mg/dL (8.5-10.1); Carbon Dioxide 27.4 mMol/L (20.0-31.0); Cardiac Risk Estimate 2.9 RATIO (4.0-6.7); Chloride 105 mMol/L (98-107); Cholesterol 132 mg/dL (132-200); Creatinine (Component) 0.5 mg/dL (0.6-1.3); Estimated Creatinine Clearance 113.5 mL/min (>60); Glucose 114 mg/dL (74-106); HDL Cholesterol 46 mg/dL (40-60); LDL Cholesterol,Calculated 67 mg/dL (0-130); Magnesium 1.9 mg/dL (1.6-2.6); Osmolality,Calculated 279 (275-295); Potassium 4.1 mMol/L (3.4-5.1); Sodium 141 mMol/L (136-145); Triglycerides 96 mg/dL (30-150); eGFR > 60 See Note
[2025-01-29] MEDS: DIVALPROEX SOD 125 MG SPRINKLE PO (08:17)
[2025-01-29] MEDS: TAMSULOSIN HCL 0.4 MG CAPSULE PO (08:17)
--- NOTE | 2025-01-29 10:23 | PC.SS ---
Initial assessment: Patient is a 69 year-old male admitted for seizure. Conducted bedside contact with the patient to conduct initial assessment and to discuss discharge planning, patient was accompanied by his Teresa. Patient confirmed demographic information. Patient identifies his Teresa Thornton as his emergency contact. Patient resides at home with his . Patient reports he requires some assistance with completion of ADL?s. Patient reports having a walker at home to assist with ambulation. Patient denies home 02 needs. Patient's pharmacy of choice is [facility] and his PCP is Josh Prieto. No discharge needs identified by the patient at this time. SS will remain available for any additional needs or concerns. D/C Plan: Home Next of kin: Teresa or home phone
[2025-01-29] MEDS: INSULIN LISPRO (AdmeLOG) 1 UNIT/0.01 ML UNIT SC ×2 (12:13→21:01)
--- NOTE | 2025-01-29 12:59 | ESPR_ITS ---
<Statement entered by Ha Leo MD - 01/30/25 07:14> I discussed with and supervised the wireless internet installer physician involved in the care of this patient. Patient assessment and plan was discussed with entire medicine team, including my attending. I agree with the assessment and plan as documented by wireless internet installer doctor. Patient care was discussed with my attending physician Dr. Lorna Leo, PGY-2 Documentation for date of: 01/29/25 Subjective Subjective Interval history: Patient was seen and examined by the bedside. Admitted overnight for seizure work up. According to , he was started on valproate and hydroxizyne due to behavioral issues during being in SNF after having stroke. According to her, he became more impatient and irritative after stroke. MRI brain and EEG panding. Neurology is consulted, pending recs. Patient was consulted on smoking and alcohol cessation. Patient denies dysuria, reports he has trouble with urinating fully, takes tamsulozine. Recommended to f/u with urology. Exam Vital Signs Temp Pulse Resp BP Pulse Ox O2 Del Method 98 F 76 18 126/78 96 Room Air 01/29/25 08:00 01/29/25 08:14 01/29/25 08:14 01/29/25 08:00 01/29/25 08:00 01/29/25 08:00 Narrative Exam Gen: Well-developed and well-nourished. HEENT: NCAT, PERRLA, EOMI, MMM, anicteric conjunctivae. Poor dentition. CVS: normal S1 and S2. RRR. No M/R/G. Resp: CTA B/L. No rhonchi, rales, crackles or wheezing. Abd: soft, non-tender, non-distended. BS+ in all 4 quadrants. MSK: Good ROM in BUE & BLE. No edema or rash. Neuro: CN II-XII grossly intact. Strength 4/5 in BLE, 5/5 in CULLEN. Alert and oriented x3. Psych: appropriate mood and affect. Objective Labs 01/30/25 04:10 01/30/25 04:10 Labs: Laboratory Results - last 24 hr 01/28/25 01/28/25 01/28/25 17:49 20:57 22:01 WBC 12.2 H RBC 4.53 Hgb 13.8 Hct 40.6 L MCV 90 MCH 30.5 MCHC 34.0 RDW Std Deviation 46.4 H Plt Count 244 Neut % (Auto) 75 Lymph % (Auto) 13 [place] % (Auto) 7 Eos % (Auto) 3 Baso % (Auto) 1 Neut # (Auto) 9.1 H Lymph # (Auto) 1.6 [place] # (Auto) 0.9 H Eos # (Auto) 0.4 Baso # (Auto) 0.1 Immature Gran # (Auto) 0.09 H Absolute Nucleated RBC 0.00 Immature Gran % 1 H Nucleated RBC % 0 Sodium 140 Potassium 4.7 Chloride 104 Carbon Dioxide 28.2 Anion Gap 8 BUN 7 L Creatinine 0.6 Estim Creat Clear Calc 101.4 eGFR > 60 BUN/Creatinine Ratio [address] Glu mg/dL Hemoglobin A1c Calculated Osmolality 279 Calcium 10.3 Corrected Calcium 10.3 H Magnesium Total Bilirubin 0.3 AST 18 ALT 30 Alkaline Phosphatase 122 H Troponin I < 0.020 < 0.020 Total Protein 6.2 Albumin 4.1 Globulin 2.1 L Albumin/Globulin Ratio 2.0 Triglycerides Cholesterol LDL Cholesterol, Calc HDL Cholesterol Cholesterol/HDL Ratio TSH Ur Collection Type Catheter Urine Color Colorless A Urine Clarity Clear Urine pH 6.5 Ur Specific [place] 1.008 Urine Protein Negative Urine Glucose (UA) Negative Urine Ketones Negative Urine Blood Negative Urine Nitrite Negative Urine Bilirubin Negative Urine Urobilinogen (Auto) Negative Ur Leukocyte Esterase Positive Urine RBC 5 H Urine WBC 12 H Ur Squamous Epith Cells 0 Urine Bacteria Rare 01/29/25 04:34 WBC 10.9 H RBC 4.48 L Hgb 13.8 Hct 40.2 L MCV 90 MCH 30.8 MCHC 34.3 RDW Std Deviation 46.0 H Plt Count 261 Neut % (Auto) 59 Lymph % (Auto) 28 [place] % (Auto) 8 Eos % (Auto) 4 Baso % (Auto) 1 Neut # (Auto) 6.4 Lymph # (Auto) 3.1 [place] # (Auto) 0.9 H Eos # (Auto) 0.5 Baso # (Auto) 0.1 Immature Gran # (Auto) 0.06 H Absolute Nucleated RBC 0.00 Immature Gran % 1 H Nucleated RBC % 0 Sodium 141 Potassium 4.1 D Chloride 105 Carbon Dioxide 27.4 Anion Gap 9 BUN 6 L Creatinine 0.5 L Estim Creat Clear Calc 113.5 eGFR > 60 BUN/Creatinine Ratio 12 [address]ucose [address] Glu mg/dL 111 Hemoglobin A1c 5.5 Calculated Osmolality 279 Calcium 10.5 Corrected Calcium 10.5 H Magnesium 1.9 Total Bilirubin 0.4 AST 22 ALT 33 Alkaline Phosphatase 126 H Troponin I Total Protein 6.0 Albumin 4.0 Globulin 2.0 L Albumin/Globulin Ratio 2.0 Triglycerides 96 Cholesterol 132 LDL Cholesterol, Calc 67 HDL Cholesterol 46 Cholesterol/HDL Ratio 2.9 L TSH 0.80 Ur Collection Type Urine Color Urine Clarity Urine pH Ur Specific [place] Urine Protein Urine Glucose (UA) Urine Ketones Urine Blood Urine Nitrite Urine Bilirubin Urine Urobilinogen (Auto) Ur Leukocyte Esterase Urine RBC Urine WBC Ur Squamous Epith Cells Urine Bacteria Quality Measures Quality Measures VTE prophylaxis Advance care planning discussed with:: other Assessment & Plan Assessment Current Active Medications: Generic Name Dose Route Start Last Admin Trade Name Freq PRN Reason Stop Dose Admin Acetaminophen 650 mg 01/28/25 21:38 Acetaminophen 325 Mg Tablet PO 02/27/25 21:37 Q6H PRN pain and Fever >100.4 Atorvastatin Calcium 40 mg 01/29/25 21:00 Atorvastatin Calcium 20 Mg Tablet PO 02/28/25 20:59 HS RAHEEL Dextrose 25 ml 01/28/25 21:38 Dextrose 50%-Water Inj 50 Ml Syringe IV 02/27/25 21:37 Q15MIN PRN BG 50-70 responsive npo pt Dextrose 50 ml 01/28/25 21:38 Dextrose 50%-Water Inj 50 Ml Syringe IV 02/27/25 21:37 Q15MIN PRN BG <50 OR BG <70 & pt unresponsive Divalproex Sodium 125 mg 01/29/25 09:00 01/29/25 08:17 Divalproex Sod 125 Mg Sprinkle PO 02/28/25 08:59 125 mg QDAY RAHEEL Administration Glucagon 1 mg 01/28/25 21:38 Glucagon Inj 1 Mg Vial IM Q15MIN PRN BG <70, and no IV access Heparin Sodium (Porcine) 5,000 unit 01/28/25 22:00 01/29/25 05:59 Heparin Sod Inj 5000 Unit/Ml Vial SC 02/11/25 21:59 5,000 unit Q8HR RAHEEL Administration Insulin Human Lispro 0 unit 01/29/25 00:00 01/29/25 12:13 Insulin Lispro (Admelog) 1 Unit/0.01 Ml Unit SC 02/28/25 00:00 1 unit Q6HR RAHEEL Administration Protocol Lorazepam 1 mg 01/28/25 21:43 Lorazepam 2 Mg/Ml Vial IVP 02/02/25 21:59 Q2HR PRN Breakthrough seizures Lorazepam 0.5 mg 01/29/25 10:00 Lorazepam 0.5 Mg Tablet PO 02/03/25 09:59 Q4HR PRN CIWA Score 2-6 Lorazepam 1 mg 01/29/25 10:00 Lorazepam 0.5 Mg Tablet PO 02/03/25 09:59 Q4HR PRN CIWA SCORE 7-11 Lorazepam 2 mg 01/29/25 10:00 Lorazepam 0.5 Mg Tablet PO 02/03/25 09:59 Q4HR PRN CIWA SCORE 12-15 Ondansetron HCl 4 mg 01/28/25 21:38 Ondansetron Inj 2 Mg/Ml Inj 2 Ml IVP 02/27/25 21:37 Q6H PRN NAUSEA OR VOMITING Protocol Tamsulosin HCl 0.4 mg 01/28/25 22:30 01/29/25 08:17 Tamsulosin Hcl 0.4 Mg Capsule PO 02/27/25 22:29 0.4 mg DAILY RAHEEL Administration Plan 69-year-old male with past medical history of CVA with residual left-sided weakness, hypertension, BPH, DM2, and 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 Patient on the time of assessment was back to baseline. Patient has left-sided weakness from previous CVA Patient was taking Depakote at home after CVA, but no documented diagnosis of seizures in the past. DDx includes focal seizure versus less likely TIA. Patient's UA was positive bacteria which could also be the inciting factor for his seizure onset. Plan: - home depakote 125 mg BID, will change the dose according as neurology recommends -Ativan 1 mg every 2 hours as needed for breakthrough seizures -home atorvastatin -MRI head brain with and without contrast ordered -EEG ordered -Aspiration precautions -Seizure cautions -Neurology consulted, appreciate commendations #Complicated UTI #BPH #Hx of urine retention after CVA Patient's UA was positive for bacteria Patient needs to do self-catheterization since his CVA. WBC 10.9 Patient does not have dysuria symptoms. Plan: -Urine cultures ordered -Will continue to monitor - f/u outpatient with urology #Hx of DM2 A1c 5.5% Plan: - ISS -hypoglycemia protocol #Hx of HTN Plan: - resumed home lisinopril #History of alcohol abuse Patient is usually drinks 6 beers a day, cut down to 2 beers a day a few weeks ago. - CIWA protocol #Active smoker Plan: - patient declined nicotine patch Disposition: telemetry Diet: cardiac GI prophylaxis: not indicated DVT prophylaxis: heparin subcu Code: DNR Plan of care discussed with attending Dr. Rothman, PGY-[address] Leo. Jes Godoy MD, PGY 1. Attending Provider Attestation/Addendum I have discussed and was present for the essential components of the history, physical examination, diagnosis, and treatment plan with the resident. I agree with the patient's care as documented by the resident and amended herein by me. Juan Rothman, DO. Patient seen and evaluated this AM. No acute events overnight, vital signs stable, patient afebrile. No seizure like activity overnight however his left arm is still a bit tremulous, more of an intention tremor which apparently is new occurring just before admission. Labs largely unremarkable, calcium a bit elevated 10.5 and urinalysis was positive although the patient states he is only demonstrating urinary hesitancy which is chronic for him secondary to BPH. MRI brain pending, EEG pending will continue Keppra and Depakote per neurology recommendations. Will continue to monitor closely Although this document has been carefully reviewed, there may still be some phonetic and other typographical errors. These errors are purely grammatical due to imperfections in the software program and should not be construed in any way to compromise the substance of the patient's medical care during this visit.
--- NOTE | 2025-01-29 14:30 | PC.SS ---
Rounding note: pending MRI, EEG and PT evaluation. D/c plan is home.
--- NOTE | 2025-01-29 16:01 | PC.PT ---
Attempt to initiate PT evaluation at 1600 but patient is at MRI. Will try again tomorrow.
[2025-01-29] MEDS: Lisinopril 20 MG TABLET PO (16:40)
[2025-01-29] MEDS: ATORVASTATIN CALCIUM 20 MG TABLET 40 MG PO (21:01)
--- NOTE | 2025-01-29 23:30 | ESPR_ITS ---
Documentation for date of: 01/29/25 Subjective Subjective Interval history: Patient was seen in telemetry today at the bedside with his . No seizures reported or admission. Exam - Neurology Vital Signs Temp Pulse Resp BP Pulse Ox O2 Del Method 97.6 F 68 19 150/89 H 98 Room Air 01/29/25 20:00 01/29/25 20:00 01/29/25 20:00 01/29/25 20:00 01/29/25 20:00 01/29/25 20:00 Narrative Exam GENERAL APPEARANCE: Well hydrated, well-nourished in no acute distress. HEENT: Normocephalic, atraumatic, extraocular movements intact. Pupils: Equal reacting to light and accommodation NECK: Supple, no JVD or bruits. CARDIOVASULAR: Heart: S1, S2 heard, regular without S3-S4 or murmur no rubs or gallops. LUNGS/CHEST: Clear to auscultation bilaterally. No rails, rhonchi, or wheezing. Normal inspection. ABDOMEN: Soft, nontender, with normal bowel sounds. No pulsatile masses. No rebound, rigidity, or guarding. Normal inspection and palpation. EXTREMITIES: Normal inspection and palpation. No edema, clubbing or cyanosis. SKIN: Warm and dry without rashes. Normal inspection. MUSCULOSKELETAL: No cervical, thoracic, lumbar or midline bony tenderness. Normal inspection. NEURO: Alert, awake and oriented x3. Cranial nerves: II through XII grossly intact. Speech and language: Normal with no dysarthria or dysphasia. Motor system: Tone and bulk: Normal: Strength: 5 out of 5 in all 4 extremities; No pronator drift noted. Deep tendon reflexes: 2+ bilaterally symmetrical. Plantar reflex: Downgoing bilaterally. Sensory system: Intact to all modalities of sensation bilaterally. Coordination: Intact to dofgvo-gtue-bqyee and porc-dfzb-engf test bilaterally. No ataxia, no dysmetria, or dysdiadochokinesia noted. No intention tremors noted. Gait: Not tested. No signs of meningeal irritation noted. PSYCHIATRIC: Normal mood and affect. Objective Labs 01/30/25 04:10 01/29/25 04:34 Labs: Laboratory Results - last 24 hr 01/29/25 04:34 WBC 10.9 H RBC 4.48 L Hgb 13.8 Hct 40.2 L MCV 90 MCH 30.8 MCHC 34.3 RDW Std Deviation 46.0 H Plt Count 261 Neut % (Auto) 59 Lymph % (Auto) 28 [place] % (Auto) 8 Eos % (Auto) 4 Baso % (Auto) 1 Neut # (Auto) 6.4 Lymph # (Auto) 3.1 [place] # (Auto) 0.9 H Eos # (Auto) 0.5 Baso # (Auto) 0.1 Immature Gran # (Auto) 0.06 H Absolute Nucleated RBC 0.00 Immature Gran % 1 H Nucleated RBC % 0 Sodium 141 Potassium 4.1 D Chloride 105 Carbon Dioxide 27.4 Anion Gap 9 BUN 6 L Creatinine 0.5 L Estim Creat Clear Calc 113.5 eGFR > 60 BUN/Creatinine Ratio 12 [address] Glu mg/dL 111 Hemoglobin A1c 5.5 Calculated Osmolality 279 Calcium 10.5 Corrected Calcium 10.5 H Magnesium 1.9 Total Bilirubin 0.4 AST 22 ALT 33 Alkaline Phosphatase 126 H Total Protein 6.0 Albumin 4.0 Globulin 2.0 L Albumin/Globulin Ratio 2.0 Triglycerides 96 Cholesterol 132 LDL Cholesterol, Calc 67 HDL Cholesterol 46 Cholesterol/HDL Ratio 2.9 L TSH 0.80 Assessment & Plan Assessment and plan (1) New onset seizure: Status: Acute Assessment and plan: Second to old CVA/triggered by concurrent urinary tract infection Follow-up with the EEG, increase the dose of Depakote to 500 mg twice a day with close monitoring for any side effects including somnolence and tremors MRI brain showed multiple old infarcts nothing acute. Advised regarding importance of alcohol cessation. Noted that he has cut down significantly from 12 pack a day to 2 to 3 (2) Hypertension: Status: Chronic Assessment and plan: Continue with current meds (3) Diabetes mellitus: Status: Chronic Assessment and plan: Continue to keep the diabetes under control
[2025-01-30] VITALS (11 sets, daily range): BP systolic 136–149; BP diastolic 78–95; PULSE 7–82; RESP 12–96; TEMP 36.2–36.8; O2SAT 97–100; BMI 18.9; BMI 14.0
[2025-01-30] MEDS: MELATONIN 3 MG TABLET PO ×2 (02:28→20:05)
[2025-01-30] MEDS: HEPARIN SOD INJ 5000 UNIT/ML VIAL SC ×2 (05:31→14:25)
[2025-01-30 06:42] LABS: Basophils # (Auto) 0.1 Thou/mm3 (0.0-0.2); Basophils % (Auto) 1 % (0-2.5); Eosinophils # (Auto) 0.4 Thou/mm3 (0.0-0.5); Eosinophils % (Auto) 4 % (0-10); Hematocrit 40.8 % (41.0-53.0); Hemoglobin 13.6 g/dL (13.5-16.0); Immature Granulocytes % (Auto) 0 % (0-0); Immature Granulocytes Auto 0.03 Thou/mm3 (0.00-0.00); Lymphocytes # (Auto) 2.5 Thou/mm3 (1.0-4.8); Lymphocytes % (Auto) 28 % (10-50); Mean Corpuscular HGB Conc 33.3 g/dl (31.0-37.0); Mean Corpuscular Hemoglobin 30.2 pg (25.0-35.0); Mean Corpuscular Volume 91 fL (80-100); Monocytes # (Auto) 0.7 Thou/mm3 (0.0-0.8); Monocytes % (Auto) 8 % (0-12); Neutrophils # (Auto) 5.2 Thou/mm3 (1.8-7.7); Neutrophils % (Auto) 58 % (37-80); Nucleated Red Blood Cell % 0 /100 WBC (0); Platelet Count 197 Thou/mm3 (140-440); RDW Standard Deviation 46.9 fL (35.1-43.9); Red Blood Count 4.51 Miln/mm3 (4.50-5.90)
[2025-01-30 07:05] LABS: Alanine Aminotransferase 32 U/L (10-49); Alkaline Phosphatase 122 U/L (46-116); Anion Gap 7 (7-16); Aspartate Amino Transferase 23 U/L (0-34); BUN/Creatinine Ratio 20 Ratio (12-20); Bilirubin,Total 0.3 mg/dL (0.3-1.2); Blood Urea Nitrogen 10 mg/dL (9-23); Calcium 10.4 mg/dL (8.3-10.6); Calcium (Corrected) 10.4 mg/dL (8.5-10.1); Chloride 107 mMol/L (98-107); Creatinine (Component) 0.5 mg/dL (0.6-1.3); Estimated Creatinine Clearance 114.8 mL/min (>60); Glucose 108 mg/dL (74-106); Osmolality,Calculated 279 (275-295); Potassium 4.1 mMol/L (3.4-5.1); Sodium 140 mMol/L (136-145); eGFR > 60 See Note
[2025-01-30] MEDS: Lisinopril 20 MG TABLET PO (09:34)
[2025-01-30] MEDS: DIVALPROEX SOD DR 500 MG TABLET.DR PO ×2 (09:34→20:05)
[2025-01-30] MEDS: TAMSULOSIN HCL 0.4 MG CAPSULE PO (09:34)
[2025-01-30] MEDS: AMOXICILLIN/POT CLAV 875 TABLET 1 TAB PO ×2 (09:34→20:05)
--- NOTE | 2025-01-30 11:30 | ESPR_ITS ---
<Statement entered by Ha Leo MD - 01/30/25 21:53> I discussed with and supervised the planner internship physician involved in the care of this patient. Patient assessment and plan was discussed with entire medicine team, including my attending. I agree with the assessment and plan as documented by planner internship doctor. Patient care was discussed with my attending physician Dr.Tingle Ha Leo, PGY-2 Documentation for date of: 01/30/25 Subjective Subjective Interval history: Patient was seen and examined by the bedside. No seizures overnight. Patient is feeling well. MRI was negative for acute stroke. Valproic acid dose was increased to 500 mg BID. Will monitor for side effects. Pending EEG.PT assessed the patient, recommended outpatient PT, patient declined. He's agreeable to the home health PT. Anticipate possible discharge in 24 hours. Exam Vital Signs Temp Pulse Resp BP Pulse Ox O2 Del Method 97.2 F 72 14 140/78 H 97 Room Air 01/30/25 08:00 01/30/25 09:34 01/30/25 08:00 01/30/25 09:34 01/30/25 08:00 01/30/25 08:00 Narrative Exam Gen: Well-developed and well-nourished. HEENT: NCAT, PERRLA, EOMI, MMM, anicteric conjunctivae. Poor dentition. CVS: normal S1 and S2. RRR. No M/R/G. Resp: CTA B/L. No rhonchi, rales, crackles or wheezing. Abd: soft, non-tender, non-distended. BS+ in all 4 quadrants. MSK: Good ROM in BUE & BLE. No edema or rash. Neuro: CN II-XII grossly intact. Strength 4/5 in BLE, 5/5 in CULLEN. Alert and oriented x3. Psych: appropriate mood and affect. Objective Labs 01/30/25 04:10 01/30/25 04:10 Labs: Laboratory Results - last 24 hr 01/30/25 04:10 WBC 9.0 RBC 4.51 Hgb 13.6 Hct 40.8 L MCV 91 MCH 30.2 MCHC 33.3 RDW Std Deviation 46.9 H Plt Count 197 D Neut % (Auto) 58 Lymph % (Auto) 28 [place] % (Auto) 8 Eos % (Auto) 4 Baso % (Auto) 1 Neut # (Auto) 5.2 Lymph # (Auto) 2.5 [place] # (Auto) 0.7 Eos # (Auto) 0.4 Baso # (Auto) 0.1 Immature Gran # (Auto) 0.03 H Absolute Nucleated RBC 0.00 Immature Gran % 0 Nucleated RBC % 0 Sodium 140 Potassium 4.1 Chloride 107 Carbon Dioxide 26.0 Anion Gap 7 BUN 10 Creatinine 0.5 L Estim Creat Clear Calc 114.8 eGFR > 60 BUN/Creatinine Ratio 20 Glucose 108 H Calculated Osmolality 279 Calcium 10.4 Corrected Calcium 10.4 H Magnesium 2.0 Total Bilirubin 0.3 AST 23 ALT 32 Alkaline Phosphatase 122 H Total Protein 6.0 Albumin 4.0 Globulin 2.0 L Albumin/Globulin Ratio 2.0 Quality Measures Quality Measures VTE prophylaxis Advance care planning discussed with:: other Assessment & Plan Assessment Current Active Medications: Generic Name Dose Route Start Last Admin Trade Name Freq PRN Reason Stop Dose Admin Acetaminophen 650 mg 01/28/25 21:38 Acetaminophen 325 Mg Tablet PO 02/27/25 21:37 Q6H PRN pain and Fever >100.4 Amoxicillin/Clavulanate Potassium 1 tab 01/30/25 09:00 01/30/25 09:34 Amoxicillin/Pot Clav 875 Tablet PO 02/06/25 08:59 1 tab BID RAHEEL Administration Atorvastatin Calcium 40 mg 01/29/25 21:00 01/29/25 21:01 Atorvastatin Calcium 20 Mg Tablet PO 02/28/25 20:59 40 mg HS RAHEEL Administration Dextrose 25 ml 01/28/25 21:38 Dextrose 50%-Water Inj 50 Ml Syringe IV 02/27/25 21:37 Q15MIN PRN BG 50-70 responsive npo pt Dextrose 50 ml 01/28/25 21:38 Dextrose 50%-Water Inj 50 Ml Syringe IV 02/27/25 21:37 Q15MIN PRN BG <50 OR BG <70 & pt unresponsive Divalproex Sodium 500 mg 01/30/25 09:00 01/30/25 09:[address] 500 Mg Tablet.Dr PO 03/01/25 08:59 500 mg BID RAHEEL Administration Glucagon 1 mg 01/28/25 21:38 Glucagon Inj 1 Mg Vial IM Q15MIN PRN BG <70, and no IV access Heparin Sodium (Porcine) 5,000 unit 01/28/25 22:00 01/30/25 05:31 Heparin Sod Inj 5000 Unit/Ml Vial SC 02/11/25 21:59 5,000 unit Q8HR RAHEEL Administration Insulin Human Lispro 0 unit 01/29/25 21:00 01/30/25 07:49 Insulin Lispro (Admelog) 1 Unit/0.01 Ml Unit SC 02/28/25 20:59 Not Given ACHS RAHEEL Protocol Lisinopril 20 mg 01/29/25 15:45 01/30/25 09:34 Lisinopril 20 Mg Tablet PO 02/28/25 15:44 20 mg QDAY RAHEEL Administration Lorazepam 1 mg 01/28/25 21:43 Lorazepam 2 Mg/Ml Vial IVP 02/02/25 21:59 Q2HR PRN Breakthrough seizures Lorazepam 0.5 mg 01/29/25 10:00 Lorazepam 0.5 Mg Tablet PO 02/03/25 09:59 Q4HR PRN CIWA Score 2-6 Lorazepam 1 mg 01/29/25 10:00 Lorazepam 0.5 Mg Tablet PO 02/03/25 09:59 Q4HR PRN CIWA SCORE 7-11 Lorazepam 2 mg 01/29/25 10:00 Lorazepam 0.5 Mg Tablet PO 02/03/25 09:59 Q4HR PRN CIWA SCORE 12-15 Melatonin 3 mg 01/30/25 21:00 Melatonin 3 Mg Tablet PO 03/01/25 20:59 HS [facility] Ondansetron HCl 4 mg 01/28/25 21:38 Ondansetron Inj 2 Mg/Ml Inj 2 Ml IVP 02/27/25 21:37 Q6H PRN NAUSEA OR VOMITING Protocol Polyethylene Glycol 17 gm 01/30/25 08:30 Polyethylene Glycol 17 Gm Packet PO 03/01/25 08:59 QDAY PRN constipation Sennosides 1 tab 01/30/25 08:30 Senna Tablet PO 03/01/25 08:29 QDAY PRN CONSTIPATION Protocol Tamsulosin HCl 0.4 mg 01/28/25 22:30 01/30/25 09:34 Tamsulosin Hcl 0.4 Mg Capsule PO 02/27/25 22:29 0.4 mg DAILY RAHEEL Administration Plan 69-year-old male with past medical history of CVA with residual left-sided weakness, hypertension, BPH, DM2, and 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 Patient on the time of assessment was back to baseline. Patient has left-sided weakness from previous CVA Patient was taking Depakote at home after CVA, but no documented diagnosis of seizures in the past. DDx includes focal seizure versus less likely TIA. Patient's UA was positive bacteria which could also be the inciting factor for his seizure onset. MRI was negative for acute stroke, showed encephalomalacia in the right MCA region. Plan: - valproic acid 500 mg BID -Ativan 1 mg every 2 hours as needed for breakthrough seizures -home atorvastatin -MRI head brain with and without contrast ordered -EEG pending -Aspiration precautions -Seizure cautions -Neurology consulted, appreciate commendations #Complicated UTI #BPH #Hx of urine retention after CVA Patient's UA was positive for bacteria Patient needs to do self-catheterization since his CVA. WBC 10.9 Patient does not have dysuria symptoms. Plan: -Urine cultures ordered -Will continue to monitor - f/u outpatient with urology #Suspected tooth infection Patient does not follow with dentist regularly and has poor dentition. Patient does not recall having penicillin allergy and reports that he had taken amoxicillin multiple times in the past. Plan: - Augmentin 875 mg BID for 7 days 01/30/25- #Hx of DM2 A1c 5.5% Plan: - ISS -hypoglycemia protocol #Hx of HTN Plan: - resumed home lisinopril #History of alcohol abuse Patient is usually drinks 6 beers a day, cut down to 2 beers a day a few weeks ago. - CIWA protocol #Active smoker Plan: - patient declined nicotine patch Disposition: telemetry Diet: cardiac GI prophylaxis: not indicated DVT prophylaxis: heparin subcu Code: DNR Plan of care discussed with attending Dr. Rothman, PGY-[address] Leo. Jes Godoy MD, PGY 1. Attending Provider Attestation/Addendum I have discussed and was present for the essential components of the history, physical examination, diagnosis, and treatment plan with the resident. I agree with the patient's care as documented by the resident and amended herein by me. Juan Rothman DO. Patient seen and evaluated this AM. No acute events overnight, vital signs stable, patient afebrile overnight. Patient admitted for seizure, which she has had in the past and was on antiseizure medication prior to admission. MRI negative for any acute intracranial pathology, did demonstrate possible demyelinating disease. Unclear what preempted the patient's seizure, he still is an active smoker, he does have urinary hesitancy and UA was positive but he attributes this as a chronic issue from BPH. Considering this and possible dental infection I did start the patient on Augmentin as to be cautious. Urine cultures are pending and the patient was advised that he needs to see a dentist [facility]. He was strenuously advised to give up tobacco use however he states that likely will not happen. Patient also was a bit hypercalcemic,, corrected calcium 10.4, unclear etiology, likely need to be worked up further if remains high in the outpatient setting. EEG is still pending should be done today, likely can be discharged tomorrow pending results and final neurology recommendations. The patient's Depakote was increased to 500 mg twice daily. Neurology consulted, appreciate recommendations Although this document has been carefully reviewed, there may still be some phonetic and other typographical errors. These errors are purely grammatical due to imperfections in the software program and should not be construed in any way to compromise the substance of the patient's medical care during this visit.
[2025-01-30] MEDS: INSULIN LISPRO (AdmeLOG) 1 UNIT/0.01 ML UNIT SC (12:44)
[2025-01-30] MEDS: ATORVASTATIN CALCIUM 20 MG TABLET 40 MG PO (20:05)
[2025-01-30] MEDS: LORazepam 0.5 MG TABLET PO (20:05)
--- NOTE | 2025-01-30 23:14 | ESPR_ITS ---
Documentation for date of: 01/30/25 Subjective Subjective Interval history: Patient was seen in telemetry today at the bedside with his . No seizures reported or admission. Exam - Neurology Vital Signs Temp Pulse Resp BP Pulse Ox O2 Del Method 98.0 F 68 14 148/92 H 99 Room Air 01/30/25 20:00 01/30/25 20:00 01/30/25 20:00 01/30/25 20:00 01/30/25 20:00 01/30/25 20:00 Narrative Exam GENERAL APPEARANCE: Well hydrated, well-nourished in no acute distress. HEENT: Normocephalic, atraumatic, extraocular movements intact. Pupils: Equal reacting to light and accommodation NECK: Supple, no JVD or bruits. CARDIOVASULAR: Heart: S1, S2 heard, regular without S3-S4 or murmur no rubs or gallops. LUNGS/CHEST: Clear to auscultation bilaterally. No rails, rhonchi, or wheezing. Normal inspection. ABDOMEN: Soft, nontender, with normal bowel sounds. No pulsatile masses. No rebound, rigidity, or guarding. Normal inspection and palpation. EXTREMITIES: Normal inspection and palpation. No edema, clubbing or cyanosis. SKIN: Warm and dry without rashes. Normal inspection. MUSCULOSKELETAL: No cervical, thoracic, lumbar or midline bony tenderness. Normal inspection. NEURO: Alert, awake and oriented x3. Cranial nerves: II through XII grossly intact. Speech and language: Normal with no dysarthria or dysphasia. Motor system: Tone and bulk: Normal: Strength: 5 out of 5 in all 4 extremities; No pronator drift noted. Deep tendon reflexes: 2+ bilaterally symmetrical. Plantar reflex: Downgoing bilaterally. Sensory system: Intact to all modalities of sensation bilaterally. Coordination: Intact to pivxja-reiv-[id number] and wecx-zeyr-unxr test bilaterally. No ataxia, no dysmetria, or dysdiadochokinesia noted. No intention tremors noted. Gait: Not tested. No signs of meningeal irritation noted. PSYCHIATRIC: Normal mood and affect. Objective Labs 01/30/25 04:10 01/30/25 04:10 Labs: Laboratory Results - last 24 hr 01/30/25 04:10 WBC 9.0 RBC 4.51 Hgb 13.6 Hct 40.8 L MCV 91 MCH 30.2 MCHC 33.3 RDW Std Deviation 46.9 H Plt Count 197 D Neut % (Auto) 58 Lymph % (Auto) 28 [place] % (Auto) 8 Eos % (Auto) 4 Baso % (Auto) 1 Neut # (Auto) 5.2 Lymph # (Auto) 2.5 [place] # (Auto) 0.7 Eos # (Auto) 0.4 Baso # (Auto) 0.1 Immature Gran # (Auto) 0.03 H Absolute Nucleated RBC 0.00 Immature Gran % 0 Nucleated RBC % 0 Sodium 140 Potassium 4.1 Chloride 107 Carbon Dioxide 26.0 Anion Gap 7 BUN 10 Creatinine 0.5 L Estim Creat Clear Calc 114.8 eGFR > 60 BUN/Creatinine Ratio 20 Glucose 108 H Calculated Osmolality 279 Calcium 10.4 Corrected Calcium 10.4 H Magnesium 2.0 Total Bilirubin 0.3 AST 23 ALT 32 Alkaline Phosphatase 122 H Total Protein 6.0 Albumin 4.0 Globulin 2.0 L Albumin/Globulin Ratio 2.0 Assessment & Plan Assessment and plan (1) New onset seizure: Status: Acute Assessment and plan: Second to old CVA/triggered by concurrent urinary tract infection Follow-up with the EEG, increase the dose of Depakote to 500 mg twice a day with close monitoring for any side effects including somnolence and tremors MRI brain showed multiple old infarcts nothing acute. Advised regarding importance of alcohol cessation. Noted that he has cut down significantly from 12 pack a day to 2 to 3 (2) Hypertension: Status: Chronic Assessment and plan: Continue with current meds (3) Diabetes mellitus: Status: Chronic Assessment and plan: Continue to keep the diabetes under control
[2025-01-31] VITALS (7 sets, daily range): BP systolic 134–157; BP diastolic 75–98; PULSE 65–91; RESP 11–17; TEMP 36.1–36.9; O2SAT 99–100; BMI 19.1; BMI 19.0
[2025-01-31] MEDS: LORazepam 0.5 MG TABLET PO ×2 (01:23→12:49)
[2025-01-31] MEDS: HEPARIN SOD INJ 5000 UNIT/ML VIAL SC (05:23)
[2025-01-31 05:28] LABS: Basophils # (Auto) 0.1 Thou/mm3 (0.0-0.2); Basophils % (Auto) 1 % (0-2.5); Eosinophils # (Auto) 0.4 Thou/mm3 (0.0-0.5); Eosinophils % (Auto) 4 % (0-10); Hematocrit 39.4 % (41.0-53.0); Hemoglobin 13.7 g/dL (13.5-16.0); Immature Granulocytes % (Auto) 0 % (0-0); Immature Granulocytes Auto 0.03 Thou/mm3 (0.00-0.00); Lymphocytes # (Auto) 2.5 Thou/mm3 (1.0-4.8); Lymphocytes % (Auto) 26 % (10-50); Mean Corpuscular HGB Conc 34.8 g/dl (31.0-37.0); Mean Corpuscular Hemoglobin 30.2 pg (25.0-35.0); Mean Corpuscular Volume 87 fL (80-100); Monocytes # (Auto) 0.8 Thou/mm3 (0.0-0.8); Monocytes % (Auto) 9 % (0-12); Neutrophils # (Auto) 5.7 Thou/mm3 (1.8-7.7); Neutrophils % (Auto) 60 % (37-80); Nucleated Red Blood Cell % 0 /100 WBC (0); Platelet Count 238 Thou/mm3 (140-440); RDW Standard Deviation 44.1 fL (35.1-43.9); Red Blood Count 4.53 Miln/mm3 (4.50-5.90); White Blood Count 9.5 Thou/mm3 (3.8-10.6)
[2025-01-31 05:56] LABS: Alanine Aminotransferase 35 U/L (10-49); Albumin, Serum 4.2 gm/dL (3.4-4.8); Albumin/Globulin Ratio 2.1 (1.2-2.2); Alkaline Phosphatase 122 U/L (46-116); Anion Gap 9 (7-16); Aspartate Amino Transferase 22 U/L (0-34); BUN/Creatinine Ratio 16 Ratio (12-20); Bilirubin,Total 0.3 mg/dL (0.3-1.2); Blood Urea Nitrogen 8 mg/dL (9-23); Calcium 10.5 mg/dL (8.3-10.6); Calcium (Corrected) 10.5 mg/dL (8.5-10.1); Carbon Dioxide 25.1 mMol/L (20.0-31.0); Chloride 105 mMol/L (98-107); Creatinine (Component) 0.5 mg/dL (0.6-1.3); Estimated Creatinine Clearance 115.6 mL/min (>60); Glucose 128 mg/dL (74-106); Osmolality,Calculated 277 (275-295); Potassium 4.4 mMol/L (3.4-5.1); Sodium 139 mMol/L (136-145); Total Protein 6.2 gm/dL (5.7-8.2); eGFR > 60 See Note
[2025-01-31] MEDS: INSULIN LISPRO (AdmeLOG) 1 UNIT/0.01 ML UNIT SC (07:55)
[2025-01-31] MEDS: AMOXICILLIN/POT CLAV 875 TABLET 1 TAB PO (08:14)
[2025-01-31] MEDS: TAMSULOSIN HCL 0.4 MG CAPSULE PO (08:14)
[2025-01-31] MEDS: DIVALPROEX SOD DR 500 MG TABLET.DR PO (08:16)
[2025-01-31] MEDS: Lisinopril 20 MG TABLET PO (08:16)
--- NOTE | 2025-01-31 09:20 | RESP.EEG ---
EEG COMPLETED AND READY FOR REVIEW BY DR Belkis Jensen WILL NOTIFY HER.
--- NOTE | 2025-01-31 12:15 | PC.NURSE ---
Donovan Catheter removed at 0900 today. Patient voiding with no issues. Patient peripheral IV removed, discharge instructions given, and telemonitor removed.
--- NOTE | 2025-01-31 13:20 | PC.NURSE ---
Patient BP 173/95, MD called prior to discharging patient. Patient post void residual 175ml, MD notified.
--- NOTE | 2025-01-31 13:25 | ESDS_ITS ---
<Statement entered by Ha Leo MD - 02/01/25 13:55> I discussed with and supervised the financial analyst intern physician involved in the care of this patient. Patient assessment and plan was discussed with entire medicine team, including my attending. I agree with the assessment and plan as documented by financial analyst intern doctor. Patient care was discussed with my attending physician Dr. Shahnaz Leo, PGY-2 <Statement entered by Adry Christie DO - 02/01/25 13:48> I, Adry Christie DO, attest that I was physically present for the pineda portions of the service and evaluated the patient with the resident and I reviewed and discussed the case with the resident and agree with the resident's findings and plans of care as documented above Planned Discharge Date 01/31/25 DS: Providers Provider Date of admission: 01/28/25 21:38 Primary care physician: Physician Mima Primary/Family Admitting Provider: Tyshawn Rothman DO Attending Provider on Admission: Adry Christie DO Consults: 01/28/25 21:42 Consult to Neurology / Tele-Neurology Routine Comment: Consulting Provider: Magdy Viveros 01/29/25 13:49 Referral Physical Therapy Routine Comment: Physician Instructions: Instructions: s/p seizure vs CVA Attending Provider on DC: Bennett Almanzar MD Discharging Provider: Bennett Almanzar MD DS: Diagnosis Problem List Completed Was Problem List Reviewed/Reconciled?: Yes Hospital Course Hospital Course Hospital course: A 69-year-old male with past medical history of CVA with residual left-sided weakness, hypertension, BPH, DM2, and 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 Hospital course: Initially came in afebrile and normotensive. Initial labs were relevant for mild leukocytosis and UA positive for bacteria. Initial imaging included head CT which was unremarkable and EKG which did not show any ST changes. Loading dose of keppra is given. Patient is started on antibiotics for UTI and suspected tooth infection. Neurologist, Dr. Viveros was consulted. MRI brain is negative for acute hemorrhage, mass effect or midline shift. No acute infarct. Prominent chronic microvascular white matter change with multiple old infarcts. Increased dose of Depakote to 500 Mg orally twice daily. EEG done showed normal study. Patient was found to have urinary retention at the time of admission for which Whitman catheter was placed. On the day of the discharge, patient and his at bedside are educated about BPH causing the urinary retention and causing urinary tract infections. Recommended to either continue Whitman catheter/self intermit tent catheterization but patient and patient's does not want urinary Whitman catheter as patient is having this urinary retention without whitman catheter since 2 years from now and during the day of discharge after removing the Whitman catheter patient was able to void and repeat bladder scan showed 120 mL of urine in the bladder after removal of Whitman catheter. states that the patient does not like to follow up with patients, nor do they wish for patients to go home with catheter. Advised patient to f/u with urology. Moreover, will order C to f/u with patient in the event he has retention and be straight cathed. Finasteride was added and patient is recommended to follow-up in outpatient basis with a urologist for further management Patient is discharged to home with home health with following medications and recommendations - Follow-up with PCP within 1 week of discharge. If you do not have appointment, please follow-up with the [facility] with Dr. Almanzar. Call [phone] to make an appointment. - Follow up with Dr. Viveros within 2 weeks of discharge. - Recommended to take amoxicillin-clavulanate, 875-125 1 tablet twice daily till 02/05/2025 - Recommended to increase dose of divalproex [Depakote] to 500 Mg twice daily - Recommended to start finasteride 5 Mg p.o. daily - Stop divalproex 125 Mg p.o. 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 Christie and senior resident Dr. Ahmet Almanzar, PGY1 Time Spent with Patient Time attestation: Total time spent providing and/or coordinating discharge services: Time spent: Greater than 30 minutes Home Health Home Health Referral Orders: 01/31/25 12:19 Home Health Referral Routine Reason For Exam: seizure Home-Bound The patient must either because of illness or injury, need the aid of supportive devices such as crutches, canes, wheelchairs, and walkers; the use of special transportation; or the assistance of another person in order to leave their place of residence; OR have a condition such that leaving his or her home is medically contraindicated. In addition, the patient also meets the following criteria: patient is normally unable to leave the home and leaving home requires considerable taxing effort. Addendum to Home Health Certification Practitioner's Certification: I certify that the patient has been under my care in the hospital and the care of attending physician (see below). We had a jugj-[id number]-[id number] encounter on (see date below). My clinical findings indicate that the patient is home bound per the above criteria and the Home Health Services noted in these orders are medically necessary. The primary reason for the [id number] encounter is related to the fact that the patient requires home health services. Date Certifying Dkyu-jz-Hokc Physician Encounter: 01/28/25 Physician's Name who will Assume Oversight for HH Services: Physician No Primary/Family WOOD HEEL CEMENTER - Community Resources: No PT to Evaluate: Yes PT to evaluate and provide a treatmnet plan to increase patient's mobility and strength. Wound Care: No IV Therapy: No RN Safety Evaluation: Yes RN to evaluate and create a plan of care that will produce positive outcomes. Palliative Treatment: No Palliative treatment and evaluate the need for hospice. Home Health Aide - Personal Care: Yes Home Health Aide to assist with any ADL's. Exam Vital Signs Temp Pulse Resp BP Pulse Ox O2 Del Method 97.0 F 90 15 157/98 H 99 Room Air 01/31/25 11:53 01/31/25 11:53 01/31/25 11:53 01/31/25 11:53 01/31/25 11:53 01/31/25 11:53 Narrative Exam Gen: Well-developed and well-nourished. HEENT: NCAT, PERRLA, EOMI, MMM, anicteric conjunctivae. Poor dentition. CVS: normal S1 and S2. RRR. No M/R/G. Resp: CTA B/L. No rhonchi, rales, crackles or wheezing. Abd: soft, non-tender, non-distended. BS+ in all 4 quadrants. MSK: Good ROM in BUE & BLE. No edema or rash. Neuro: CN II-XII grossly intact. Strength 4/5 in BLE, 5/5 in CULLEN. Alert and oriented x3. Psych: appropriate mood and affect. Discharge Plan Plan Patient Disposition: Home w/HOME HEALTH Patient condition on transfer: Stable Care Plan Goals: -Follow-up with PCP within 1 week of discharge. If you do not have appointment, please follow-up with the [facility] with Dr. Almanzar. Call [phone] to make an appointment. -Follow up with Dr. Viveros within 2 weeks of discharge. -Recommended to take amoxicillin-clavulanate, 875-125 1 tablet twice daily till 02/05/2025 - Recommended to increase dose of divalproex [Depakote] to 500 Mg twice daily - Recommended to start finasteride 5 Mg p.o. daily - Stop divalproex 125 Mg p.o. twice daily, Monica Peralta - Recommended to continue rest of the home medications as needed -Recommended to follow-up with urologist for further management of BPH -Return to ED if symptoms persist or return Prescriptions/Referrals Prescriptions/Med Rec: New divalproex 500 mg Tablet,Delayed Release (Dr/Ec) 500 mg PO BID Qty: 60 3RF finasteride 5 mg tablet 5 mg PO QDAY Qty: 30 2RF amoxicillin-pot clavulanate 875-125 mg tablet 1 tab PO BID Qty: 11 0RF Rx Instructions: Take 1 tablet twice daily Continued atorvastatin 40 mg tablet 40 mg PO QPM lisinopril 20 mg tablet 20 mg PO DAILY tamsulosin 0.4 mg capsule 0.4 mg PO QPM Patient Comments: TAKE TWO CAPSULES BY MOUTH EVERY DAY FOR PROSTATE cinacalcet 30 mg tablet 30 mg PO 1XD Patient Comments: TAKE ONE TABLET BY MOUTH EVERY DAY WITH FOOD OR AFTER MEALS oxybutynin chloride 5 mg Tablet Extended Release 24hr 5 mg PO QDAY cholecalciferol (vitamin D3) [Vitamin D3] 125 mcg (5,000 unit) Tablet 125 mcg PO QDAY hydroxyzine HCl 25 mg tablet 25 mg PO HS Patient Comments: TAKE ONE TABLET BY MOUTH AT BEDTIME Discontinued folic acid 1 mg tablet 1 mg PO 1XD divalproex 125 mg capsule, delayed rel sprinkle 125 mg PO BID Patient Comments: TAKE ONE CAPSULE BY MOUTH TWICE DAILY Jardiance 10 mg tablet 10 mg PO 1XD hydrocodone-acetaminophen 7.5-300 mg tablet 1 tab PO BID MDD 2 PRN (Reason: pain) Qty: 7 0RF Referrals: No Primary/Family,Physician [Primary Care Provider] - Patient/Caregiver Discharge Instructions Education Materials: Your High Blood Pressure Risk Factors, Causes of Syncope, Stroke Prevent Another Caregiver, ED Alcohol Withdrawal Seizure Print Language: Hungarian Stand Alone Forms: Paula Award Info., Patient Portal Info Letter Discharge Order Discharge Orders: Discharge (Routine); Ordered 01/31/25 Ordered By: Bennett Almanzar Quality Discharge Quality Measures VTE prophylaxis
--- NOTE | 2025-02-01 14:51 | PC.SS ---
SS completed home health referral.
--- NOTE | 2025-02-02 08:05 | PC.CC ---
waiting for [facility] to respond. If [facility] declines, [facility] can open.
--- NOTE | 2025-02-03 07:54 | PC.CC ---
Per [facility], [facility] declined. [facility] accepted and booked. soc 02/04
== END 2025-01-31 13:54 | disposition home health service (06) | DRG 101 ==
LOC: SERX 18:19 → SERHOLD 22:12 → S2NX 01-29 00:11
PROVIDERS: Emergency Medicine; Nurse Practitioner Family; Admitting Provider Student in an Organized Health Care Education/Training Program; Emergency Provider Emergency Medicine; Visit Provider Internal Medicine
DX: R56.9 Unspecified convulsions (principal); N39.0 Urinary tract infection, site not specified; I69.354 Hemiplegia and hemiparesis following cerebral infarction affecting left non-dominant side; G93.40 Encephalopathy, unspecified; E78.5 Hyperlipidemia, unspecified; I10 Essential (primary) hypertension; E11.9 Type 2 diabetes mellitus without complications; F17.200 Nicotine dependence, unspecified, uncomplicated; N40.0 Benign prostatic hyperplasia without lower urinary tract symptoms; F10.10 Alcohol abuse, uncomplicated; N40.1 Benign prostatic hyperplasia with lower urinary tract symptoms; R39.11 Hesitancy of micturition; E83.52 Hypercalcemia; G25.2 Other specified forms of tremor; Z79.84 Long term (current) use of oral hypoglycemic drugs; Z79.899 Other long term (current) drug therapy; Z66 Do not resuscitate; Z88.0 Allergy status to penicillin; R33.8 Other retention of urine
CPT/HCPCS: 36415; 70450; 70553; 80053; 80061; 81001; 83036; 83735; 84443; 84484; 85025; 87086; 93005; 95816; 96365; 96375; 97162; 99285; A9579; J0696; J1644; J1815; J1953; A9270

== ENCOUNTER 2025-02-04 07:32 | Emergency (ER) | payer OTHER, SELFPAY ==
[2025-02-04] VITALS (8 sets, daily range): BP systolic 102–118; BP diastolic 62–76; PULSE 80–101; RESP 18–24; TEMP 37.3–38; O2SAT 93–100; BMI 18.6; BMI 11.0
--- NOTE | 2025-02-04 08:18 | PC.NURSE ---
Patient to er via ems from home with c/o ground level fall, no syncopal episode, c/o skin tear to left elbow and abrasion to left knee noted, Patient on blood thinners, Patient denies hitting his head, no loc. Patient denies pain, skin warm dry and pink, chart up to be seen by er provider.
--- NOTE | 2025-02-04 09:01 | PD.EDFALL ---
ED Fall Injury RME/HPI General Chief Complaint: Fall Stated Complaint: FALL Arrival date/time: 02/04/25 07:32 Limitations: no limitations RME / HPI RME / HPI Narrative: 69 year old male with history of CVA with residual left-sided weakness, uses a walker to ambulate, hypertension, diabetes, BPH presents to the ED BIBA from home for evaluation after fall today. States while in the bathroom near the shower, he lost his balance and fell. Resulting in a skin tear to the left elbow and left knee pain with abrasions. Denied head injury or other complaints. Denies fevers, chills, sweats, chest pain, cough, shortness of breath, abdominal pain, n/v/d. Related Data Home Medications ?Medication ?Instructions ?Recorded ?Confirmed atorvastatin 40 mg tablet 40 mg PO QPM 08/06/23 01/29/25 cholecalciferol (vitamin D3) 125 125 mcg PO QDAY 08/06/23 01/28/25 mcg (5,000 unit) tablet (Vitamin D3) cinacalcet 30 mg tablet 30 mg PO 1XD 08/06/23 01/28/25 lisinopril 20 mg tablet 20 mg PO DAILY 08/06/23 01/29/25 oxybutynin chloride 5 mg 5 mg PO QDAY 08/06/23 01/31/25 tablet,extended release 24 hr tamsulosin 0.4 mg capsule 0.4 mg PO QPM 08/06/23 01/29/25 hydroxyzine HCl 25 mg tablet 25 mg PO HS 01/28/25 01/29/25 Previous Rx's ?Medication ?Instructions ?Recorded amoxicillin 875 mg-potassium 1 tab PO BID #11 tabs 01/31/25 clavulanate 125 mg tablet divalproex 500 mg tablet,delayed 500 mg PO BID #60 tabs 01/31/25 release finasteride 5 mg tablet 5 mg PO QDAY #30 tabs 01/31/25 Allergies Allergy/AdvReac Type Severity Reaction Status Date / Time Penicillins Allergy Unknown Verified 02/04/25 08:35 Review of Systems Review of Systems Systems Reviewed: All systems reviewed, normal except as documented Past Medical History Past Medical History NEUROLOGIC: Positive Neurological Disorders, Cerebrovascular Accident (Left sided weakness deficit) and Paralysis (left sided weakness) CARDIAC: Positive Hypercholesterolemia and Hypertension GENITOURINARY: Positive Benign Prostatic Hyperplasia MUSCULOSKELETAL: Positive Arthritis and Fractures (Left hip) ENDOCRINE: Positive Endocrine Disorders and Diabetes Mellitus Type 2 OTHER HISTORY: Positive Falls Social History SMOKING STATUS: Current some day smoker SECOND HAND EXPOSURE: Yes ED Exam General Limitations: Present no limitations General appearance: Present alert and in no apparent distress Head Head exam: Present atraumatic, normocephalic and normal inspection Eye Eye exam: Present normal appearance, PERRL and EOMI ENT ENT exam: Present normal exam, normal oropharynx and mucous membranes moist Neck Neck exam: Present normal inspection, full ROM and trachea midline Chest Chest inspection: Present normal inspection and symmetric chest wall rise Respiratory Respiratory exam: Present normal lung sounds bilaterally Cardiovascular Cardiovascular exam: Present regular rate, normal rhythm and normal heart sounds Abdominal Exam Abdominal exam: Present soft and normal bowel sounds Extremities Exam Extremities exam: Present other (erythema anterior left knee, no effusion, skin tear that is closed to the left elbow, mild weakness left upper and lower extremities) Back Exam Back exam: Present normal inspection and full ROM Neurological Exam Neurological exam: Present alert, oriented X3, CN II-XII intact and other (left upper and lower extremity weakness ) Psychiatric Psychiatric exam: Present normal affect and normal mood Skin Skin exam: Present warm, dry, intact and normal color Course Quality Measures none Orders Category Date Time Status Consult Test Hole Driller NOW Care 02/04/25 12:13 Completed Referral Physical Therapy Stat Cons 02/04/25 12:15 Completed XR knee limited LT 2V Stat Exams 02/04/25 09:07 Completed Ketorolac Inj [Toradol Inj] Med 02/04/25 09:07 Discontinued 30 mg IM X1 ONE Vital Signs Vital signs: Vital Signs Temperature 99.1 F 02/04/25 07:35 Pulse Rate 101 H 02/04/25 07:35 Respiratory Rate 19 02/04/25 07:35 Blood Pressure 116/76 02/04/25 07:35 Pulse Oximetry (%) 100 02/04/25 07:35 Oxygen Delivery Method Room Air 02/04/25 07:35 Pulse ox is 100% on room air which is adequate. Fall MDM Narrative MDM Narrative:: IRosa, am scribing for and in the presence of Dr. Rutherford. 1200: I spoke with patient and . reports the patient was just admitted here for 3 days and discharged from this facility 4 days ago. States at home the patient is requiring more assistance and requesting placement to nursing facility. Will consult with social media content specialist. PT has evaluated patient in the ED and recommend SNF placement. 1715: Per medical social worker patient has been accepted at both [facility] and [facility]. At this time we are pending insurance authorization for SNF placement. 1800: Patient signed out to Dr. Ronquillo pending insurance authorization for SNF placement. Patient data External records reviewed:: [facility] previous records (I reviewed admission from 01/28/2025 through 01/31/2025) and EMS form Clinical information provided by:: patient, EMS and spouse ( adds to hx ) Social determinants that could affect healthcare access:: none Patient has the following chronic illnesses:: CVA with residual left-sided weakness, uses a walker to ambulate, hypertension, diabetes, BPH How is presenting disease/condition affected by chronic disease/condition?: exacerbated by Evaluation data The following diagnostics were reviewed and interpreted by me:: lab results Lab and/or radiology exams considered but not ordered:: None Interpretation Summary: Ordering Physician: Rey Rutherford MD Date of Service: 02/04/25 Procedure(s): XR knee limited LT 1-2V Accession Number(s): [id number] cc: Malcolm oMreno; Rey Rutherford MD; Jc Perdomo MD~ Examination: Left knee 2 views Technique one AP lateral left knee 2 views Date and time: February 04, 2025 0912 hours INDICATIONS: Patient fell today with into the knee, knee pain. FINDINGS: Old healed fracture proximal fibula Partial visualization tibial intramedullary megan Severe osteopenia No acute fracture IMPRESSION: No acute fracture Dictated By: Jc Perdomo MD Signed By: <Electronically signed by Jc Perdomo MD in OV> 02/04/25 0946 Medications / Prescriptions Medications or Prescriptions considered but not ordered:: None Medication administrations:: Medication Administration History Discontinued Medications Ketorolac Tromethamine (Ketorolac Inj 60 Mg/2 Ml Vial) 30 mg IM X1 ONE Stop: 02/04/25 09:08 Last Admin: 02/04/25 10:48 Dose: Not Given Documented By: KM Non-Admin Reason: Patient Refused See above Consultations Consultation(s) initiated? (list below): No Diagnosis Fall Differential Diagnosis: syncope and other (knee abrasion, knee contusion, knee dislocation ) Most likely diagnosis given after review of the tests above:: Fall Knee contusion Admission Indicated Admission indicated?: not indicated Admission Request Was there a request for admission?: No Disposition Plan Disposition Plan: other (specify) (Signed out to Dr. Ronquillo pending SNF placement. ) Discharge Plan Plan Patient Disposition: Xfer Skilled Nsg Fac (SNF) Prescriptions/Referrals Prescriptions/Med Rec: No Action atorvastatin 40 mg tablet 40 mg PO QPM lisinopril 20 mg tablet 20 mg PO DAILY tamsulosin 0.4 mg capsule 0.4 mg PO QPM Patient Comments: TAKE TWO CAPSULES BY MOUTH EVERY DAY FOR PROSTATE cinacalcet 30 mg tablet 30 mg PO 1XD Patient Comments: TAKE ONE TABLET BY MOUTH EVERY DAY WITH FOOD OR AFTER MEALS oxybutynin chloride 5 mg Tablet Extended Release 24hr 5 mg PO QDAY cholecalciferol (vitamin D3) [Vitamin D3] 125 mcg (5,000 unit) Tablet 125 mcg PO QDAY hydroxyzine HCl 25 mg tablet 25 mg PO HS Patient Comments: TAKE ONE TABLET BY MOUTH AT BEDTIME divalproex 500 mg Tablet,Delayed Release (Dr/Ec) 500 mg PO BID Qty: 60 3RF finasteride 5 mg tablet 5 mg PO QDAY Qty: 30 2RF amoxicillin-pot clavulanate 875-125 mg tablet 1 tab PO BID Qty: 11 0RF Rx Instructions: Take 1 tablet twice daily Referrals: Malcolm Moreno [Primary Care Provider] - In 1 week Problem List Clinical Impression: Fall, Contusion of knee Patient/Caregiver Discharge Instructions Print Language: Maldivian Stand Alone Forms: Paula Award Info., Patient Portal Info Letter
--- NOTE | 2025-02-04 09:07 | XR_ITS ---
Examination: Left knee 2 views Technique one AP lateral left knee 2 views Date and time: February 04, 2025 0912 hours INDICATIONS: Patient fell today with into the knee, knee pain. FINDINGS: Old healed fracture proximal fibula Partial visualization tibial intramedullary megan Severe osteopenia No acute fracture IMPRESSION: No acute fracture
--- NOTE | 2025-02-04 12:01 | PC.NURSE ---
Patient's , Miranda at bedside, states patient recently got d/c'd from hospital on monday for infection in mouth and uti patient still on abx from hospital. Miranda requesting to speak with Dr. Rutherford at bedside at this time speaking with patient and regarding plan of care.
--- NOTE | 2025-02-04 12:05 | PC.NURSE ---
Per Dr. Rutherford will place s/s consult.
--- NOTE | 2025-02-04 12:21 | PC.CC ---
Per ER provider, pt and family are requesting SNF placement. PT eval will be ordered by ER provider
--- NOTE | 2025-02-04 13:00 | PC.NURSE ---
Patient placed on and off bed chacon with assistance, small brown soft stool noted.
--- NOTE | 2025-02-04 15:00 | PC.NURSE ---
Patient and at bedside spoke with s/s regarding possible placement to SNF. Awaiting possible placement.
--- NOTE | 2025-02-04 15:09 | PC.CC ---
Addendum entered by iMta Davis 02/04/25 18:16: [id number]-ASW contacted Felicity from [facility] and informed her that pts and 's choice is [facility] and she understood. Addendum entered by Mita Davis 02/04/25 18:03: ASW spoke with pt and his about the SNF acceptance and asked which SNF they would like to go with. Pt and stated [facility]. ASW will contact Felicity from [facility] and inform her of the pts and 's choice. Addendum entered by Mita Davis 02/04/25 17:37: Per Pt and his , their SNF preference is [facility] and/or [facility]. Felicity stated she will take him, so as long [employer] provides the AUTH. [facility] is also willing to take him so as long [employer] provides an AUTH. Pt and 's two choices are [facility] and [facility] only. Felicity from [facility] called first and provided an acceptance. About 30 minutes later, [facility] ([facility]) called and provided an acceptance.?A discussion with family would need to take place on their preference. Addendum entered by Mita Davis 02/04/25 17:21: SNF packet submitted via [facility]. ASW attempted to contact [employer] at [phone] x. 1997; however, the call was after 5pm and no one answered. SS to f/u with [facility] on 02/05/25 to attempt to get AUTH for SNF placement. PT duong is in the chart and packet, as well as the PAS[facility]. Addendum entered by Mita Davis 02/04/25 15:54: PT (Mounika) at bedside. Addendum entered by Mita Davis 02/04/25 15:34: ASW provided a sandwich, pudding and juice box to pt, as ER provider stated it was okay to provide. Original Note: ALBERT Davis met with pt and pts at bedside ER Room #3. Pts stated she is unable to care for the pt at home as he is no longer mobile. Pts stated that a few days ago he was mobile and able to ambulate with use of a walker, but now he cannot walk one foot. Pts stated she cannot lift or assist with bathing, grooming, and other needs the pt may need. Pt and agreed to a SNF so pt can gain strength and come home so she can continue to care for him. Pts stated she has started the process of IHSS and stated she is seeking the max hours if allowed. Labor Economics Professor informed pt and his that a PT evaluation will be conducted prior to possible acceptance to a SNF. Pt and his stated their preference is [facility], [facility] or [facility]. ASW will use [facility] for placement.
--- NOTE | 2025-02-04 15:34 | PC.NURSE ---
Ok for patient to eat, patient provided with food by S/S Fernanda.
--- NOTE | 2025-02-04 18:20 | PC.NURSE ---
Patient awaiting insurance authorization for SNF at [facility], patient and are aware of plan of care. VSS, patient denies pain, patient has no other needs at this time.
--- NOTE | 2025-02-04 22:09 | PD.EDADDENDU ---
Emergency Room Addendum Addendum Narrative: 1800: Care assumed from Dr. Rutherford, the previous shift emergency physician. Past medical, surgical, social and family history reviewed. Vitals and home medications reviewed. Results and treatment plan discussed. I will assume the care of the patient at this time and will follow the patient, pending insurance authorization for SNF placement. Please refer to the emergency department record for history and examination from initial visit. Patient has remained clinically stable while under my care. 0600: Care signed out to Dr. Perry (emergency physician). Past medical, surgical, social and family history reviewed. Vitals and home medications reviewed. Results and treatment plan discussed. They will assume the care of the patient at this time and will follow the patient, pending insurance authorization for SNF placement.
[2025-02-04] MEDS: hydrOXYzine HCL 25 MG TABLET PO (22:17)
[2025-02-05] VITALS (12 sets, daily range): BP systolic 103–138; BP diastolic 66–89; PULSE 75–88; RESP 14–28; TEMP 36.4–37; O2SAT 94–98
--- NOTE | 2025-02-05 00:35 | PC.NURSE ---
pt was inc of stool. ed techs did clean and change pt. pt was asking for sleeping med. med given. otherwise continue to monitor pt. plann is to find snf for pt in the am.
--- NOTE | 2025-02-05 05:11 | PC.NURSE ---
Pt has been inc of stool x4. cleaned and changed x4. otherwise sleeping.
--- NOTE | 2025-02-05 07:14 | PD.EDADDENDU ---
Emergency Room Addendum <Reginald Perry MD - Last Filed: 02/05/25 12:59> Addendum Narrative: Patient was signed out 0600 hrs. as someone who has fallen has a history of his stroke who is weak and needs more care and is unable to care for himself. Evidently still services and working on skilled nursing placement in the need further work to complete the placement today. per patient had a comfortable night and no other acute complaints. <Gayle Garay - Last Filed: 02/05/25 12:45> Addendum Narrative: 0600: Care assumed from Dr. Ronquillo, the previous shift emergency physician. Past medical, surgical, social and family history reviewed. Vitals and home medications reviewed. I will assume the care of the patient at this time, pending insurance authorization for SNF placement. Please refer to the emergency department record for history and examination from initial visit.? The patient was placed in ED observation care at 02/05/2025 at 0600 hours. The patient was placed in ED observation care pending authorization for SNF placement. The patients past medical history, social history, and family history were reviewed. The plan of care will include serial examinations. While in ED observation the patient will have access to water, food, and personal hygiene. If the patient takes home medication(s), they will be continued in ED observation. Patient was signed out 0600 hours as someone who has fallen has a history of his stroke who is weak and needs more care and is unable to care for himself. Evidently still services and working on skilled nursing placement in the need further work to complete the placement today. Physical exam by me shows patient under no acute distress at this time. Per patient, he had a comfortable night and no other acute complaints. 1110: Patient is accepted to [facility]. ETA 1600 hours. 1600: EMS here to transport the patient to [facility]. My ED observation care ended at 02/05/2025 at 1600 hours.
--- NOTE | 2025-02-05 08:29 | PC.CC ---
Leslie PRICE made telephone contact ilya Ceballos at [facility] who reports they are pending auth from [employer]. ASW attempted to make telephone contact with Krissy with [employer] and left a voicemail.
--- NOTE | 2025-02-05 08:36 | PC.CC ---
0857 Krissy with [facility] made contact with this narrative writer and reports she is working on auth and will call back once she has auth.
--- NOTE | 2025-02-05 08:47 | PC.CC ---
ASWLeslie made face to face contact with patient to inform him that we are still pending authorization from his insurance. Patient requested ASW make telephone contact with his to provide her with update. ASW attempted to make telephone contact with his but was not successful and no voicemail is set up.
--- NOTE | 2025-02-05 10:07 | PC.NURSE ---
@ 0700 [facility] care of patient. Patient appears to be sleeping, no apparent distress noted. Patient is aware of pend insurance auth for [facility]. Patient call light within reach.
--- NOTE | 2025-02-05 11:07 | PC.CC ---
ROHITWBethLeslie was informed by Lin that auth was obtained and transportation could be arranged. ASW arranged transportation via [facility]. ASW made telephone contact with patient's to inform her that auth was obtained and transporation is being arranged.
--- NOTE | 2025-02-05 12:18 | PC.CC ---
ASW made telephone contact with patient's , Teresa to let her know transportation has been arranged for 1600 and also provided update of time to patient.
[2025-02-05] MEDS: AMOXICILLIN/POT CLAV 875 TABLET 1 TAB PO (15:58)
[2025-02-05] MEDS: FINASTERIDE 5 MG TABLET PO (15:59)
[2025-02-05] MEDS: DIVALPROEX SOD DR 500 MG TABLET.DR PO (15:59)
[2025-02-05] MEDS: OXYBUTYNIN CHLOR 5 MG TABLET PO (15:59)
[2025-02-05] MEDS: Lisinopril 20 MG TABLET PO (16:04)
--- NOTE | 2025-02-05 18:37 | PC.NURSE ---
report called to daniel jewell via telephone from [facility]
--- NOTE | 2025-02-05 18:43 | PC.CC ---
Leslie PRICE made telephone contact with [facility] as they are not here to pickler helper the patient. ASW made multiple attempts and left voicemail.
--- NOTE | 2025-02-05 18:50 | PC.CC ---
ROHITW, continued to attempt to make contact with [facility] with no success make multiple phone attempts. ROHITW obtained an MERLY signature from transfer RN Roselyn. ASW sent information to [facility] transportation.
--- NOTE | 2025-02-05 19:08 | PC.CC ---
Leslie PRICE was informed by vertical lathe operator Sal that [facility] has arrived. ASW cancelled [facility] transportation.
--- NOTE | 2025-02-06 08:38 | PC.CC ---
ASW received a call from Lin from [facility] who asked for the pts social security number for insurance and stay purposes. This is the reason for the inquiry into the patients chart.
== END 2025-02-05 19:16 | disposition skilled nursing facility (03) ==
PROVIDERS: Emergency Provider Emergency Medicine; PCP Internal Medicine
DX: S80.02XA Contusion of left knee, initial encounter (principal); S80.212A Abrasion, left knee, initial encounter; S51.012A Laceration without foreign body of left elbow, initial encounter; I69.354 Hemiplegia and hemiparesis following cerebral infarction affecting left non-dominant side; F17.210 Nicotine dependence, cigarettes, uncomplicated; W01.0XXA Fall on same level from slipping, tripping and stumbling without subsequent striking against object, initial encounter; Y92.002 Bathroom of unspecified non-institutional (private) residence as the place of occurrence of the external cause; Z75.1 Person awaiting admission to adequate facility elsewhere
CPT/HCPCS: 73560; 99283; A9270